=== PATIENT | female | born 1945 | race Caucasian/White ===

== ENCOUNTER 2018-12-25 17:17 | Emergency (ER) | payer MEDICARE, OTHER ==
[~2018-12-25 17:17] MED LIST: Sodium Chloride 0.9% 10 ML Syringe FLUSH PRN
[2018-12-25] MEDS ORDERED: Octreotide 100 MCG/ML SDV IVPUSH ONE (17:47)
[2018-12-25] MEDS ORDERED: Pantoprazole 40 MG Vial IVPUSH ONE (17:47)
[2018-12-25] MEDS ORDERED: cefTRIAXone 2 GM in Sodium Chloride 0.9% 100 ML IV ONE (17:53)
[2018-12-25] MEDS ORDERED: cefTRIAXone 1 GM Vial ONE (17:56)
[2018-12-25 17:58] LABS: ANION GAP 14.2; CHLORIDE,CL 110 mmol/L (101-111); SODIUM,NA 142 mmol/L (135-145)
[2018-12-25] MEDS ORDERED: Octreotide 500 MCG in Sodium Chloride 0.9% 250 ML IV SCH (18:00)
[2018-12-25] MEDS ORDERED: Famotidine 20 MG/2 ML SDV IVPUSH ONE (18:07)
--- NOTE | 2018-12-25 18:57 | EDM.PDOC ---
ED HPI GENERAL MEDICAL PROBLEM - General Chief Complaint: Gastrointestinal Problem Stated Complaint: AMBULANCE Time Seen by Provider: 12/25/18 17:25 Source of Information: Reports: Patient, EMS, EMS Notes Reviewed, Family, RN, RN Notes Reviewed History Limitations: Reports: Altered Mental Status - History of Present Illness INITIAL COMMENTS - FREE TEXT/NARRATIVE: Pt to the ER per [facility] with c/o vomiting blood since last night and bloody BM's today, and falling frequently. Upon arrival patient is very pale and vague with responses. Pt states she has had GI bleeds in the past, and has had gastric bypass in the past as well. Patient states she drinks alcohol and last had alcohol last evening. Patient states she feels very weak. Upon arrival to the ER pt HR in the 30's, BP 79 systolically, O2 saturation dropped to 77% on 3L/NC. Patient moved to room 1 and [facility] called for transfer to [facility] in [place]. Onset: Gradual Onset Date: 12/24/18 Abdomen Pain Score (Numeric/FACES): 6 - Related Data Allergies Allergy/AdvReac Type Severity Reaction Status Date / Time No Known Allergies Allergy Verified 09/23/13 15:29 Home Meds: Home Meds Amylase/Lipase/Protease [Peggy LEWIS 24,000 Units] 1 each PO TID 09/23/13 [History] Ascorbic Acid [Vitamin C] 500 mg PO 09/23/13 [History] Aspirin [Ecotrin] 81 mg PO 09/23/13 [History] Cholecalciferol (Vitamin D3) [Vitamin D3] 09/23/13 [History] Cyanocobalamin (Vitamin B-12) [Cyanocobalamin Injection] .MONTHLY 09/23/13 [ History] Fish Oil/[place]-3 Fatty Acids [Fish Oil] 1 gm PO 09/23/13 [History] Multivitamin with Minerals [Multiple Vitamin] 1 tab PO DAILY 09/23/13 [History] RABEprazole [Aciphex] 20 mg PO DAILY 09/23/13 [History] Zolpidem [Ambien] DAILY 09/23/13 [History] levoFLOXacin [Levaquin] 09/23/13 [History] metFORMIN HCl [Metformin HCl] 09/23/13 [History] Past Medical History Endocrine/Metabolic History: Reports: Diabetes, Type II Social & Family History - Tobacco Use Smoking Status *Q: Never Smoker - Alcohol Use Days Per Week of Alcohol Use: 5 Number of Drinks Per Day: 2 Total Drinks Per Week: 10 - Recreational Drug Use Recreational Drug Use: No ED ROS GENERAL - Review of Systems Review Of Systems: ROS reveals no pertinent complaints other than HPI. ED EXAM, GI/ABD - Physical Exam Exam: See Below Exam Limited By: Altered Mental Status General Appearance: Alert, WD/WN, No Apparent Distress Eyes: Bilateral: Normal Appearance, EOMI Ears: Normal External Exam, Hearing Grossly Normal Nose: Normal Inspection Throat/Mouth: Normal Inspection, Normal Voice, No Airway Compromise Head: Atraumatic, Normocephalic Neck: Normal Inspection, Supple, Non-Tender, Full Range of Motion Respiratory/Chest: No Respiratory Distress, Lungs Clear, Normal Breath Sounds, No Accessory Muscle Use, Chest Non-Tender Cardiovascular: Normal Peripheral Pulses, Regular Rate, Rhythm, No Edema, No Gallop, No JVD, No Murmur, No Rub, Bradycardia GI/Abdominal Exam: Normal Bowel Sounds, Soft, Non-Tender, No Organomegaly, No Distention, No Abnormal Bruit, No Mass, Pelvis Stable (Female) Exam: Deferred Rectal (Female) Exam: Bloody Stool, Heme + Stool Back Exam: Normal Inspection, Full Range of Motion, NT Extremities: Normal Inspection, Normal Range of Motion, Non-Tender, Normal Capillary Refill, No Pedal Edema Neurological: Alert, Inattentive, Slow to Respond Psychiatric: Flat Affect Skin Exam: Cool, Diaphoretic, Pallor Lymphatic: No Adenopathy Course - Vital Signs Last Recorded V/S: Last Vital Signs Temp 98.1 F 12/25/18 17:55 Pulse 71 12/25/18 17:55 Resp 18 12/25/18 17:55 BP 101/57 L 12/25/18 17:55 Pulse Ox 77 L 12/25/18 17:22 - Orders/Labs/Meds Labs: Laboratory Tests 12/25/18 12/25/18 12/25/18 Range/Units 17:28 17:28 17:28 WBC 10.9 H (5.0-10.0) 10^3/uL RBC 1.93 L (4.2-5.4) 10^6/uL Hgb 5.5 L* (12.0-16.0) g/dL Hct 17.8 L* (37.0-47.0) % MCV 92.2 (80-100) fL MCH 28.5 (27.0-34.0) pg MCHC 30.9 L (33.0-35.0) g/dL Plt Count 216 (150-450) 10^3/uL Neut % (Auto) 55.0 (42.2-75.2) % Lymph % (Auto) 39.7 (20.5-50.1) % [place] % (Auto) 4.5 (2-8) % Eos % (Auto) 0.6 L (1.0-3.0) % Baso % (Auto) 0.2 (0.0-1.0) % PT 11.6 (9.0-12.0) SEC INR 1.1 (0.9-1.2) Sodium 142 (135-145) mmol/L Potassium 4.2 (3.6-5.0) mmol/L Chloride 110 (101-111) mmol/L Carbon Dioxide 22.0 (21.0-31.0) mmol/L Anion Gap 14.2 BUN 40 H (7-18) mg/dL Creatinine 0.9 (0.6-1.3) mg/dL Est Cr Clr Drug Dosing 40.58 mL/min Estimated GFR (MDRD) > 60 BUN/Creatinine Ratio 44.44 Glucose 268 H (74-105) mg/dL Calcium 8.3 L (8.4-10.2) mg/dl Total Bilirubin 0.8 (0.2-1.0) mg/dL AST 25 (10-42) IU/L ALT 21 (10-60) IU/L Alkaline Phosphatase 63 (42-121) IU/L Troponin I < 0.02 (0.00-0.02) ng/ml Total Protein 4.3 L (6.7-8.2) g/dl Albumin 2.4 L (3.2-5.5) g/dl Globulin 1.9 Albumin/Globulin Ratio 1.26 Urine Color (YELLOW) Urine Appearance (CLEAR) Urine pH (5.0-9.0) Ur Specific [place] (1.005-1.030) Urine Protein (NEGATIVE) Urine Glucose (UA) (NEGATIVE) Urine Ketones (NEGATIVE) Urine Occult Blood (NEGATIVE) Urine Nitrite (NEGATIVE) Urine Bilirubin (NEGATIVE) Urine Urobilinogen (0.2-1.0) mg/dL Ur Leukocyte Esterase (NEGATIVE) Urine RBC /HPF Urine WBC (0-5/HPF) /HPF Ur Epithelial Cells (NOT SEEN) /HPF Amorphous Sediment (NOT SEEN) /HPF Urine Bacteria (0-FEW/HPF) /HPF Urine Mucus (NOT SEEN) /LPF Ethyl Alcohol mg/dL Blood Type Gel Antibody Screen Antibody Identification Crossmatch 12/25/18 12/25/18 12/25/18 Range/Units 17:28 17:28 17:36 WBC (5.0-10.0) 10^3/uL RBC (4.2-5.4) 10^6/uL Hgb (12.0-16.0) g/dL Hct (37.0-47.0) % MCV (80-100) fL MCH (27.0-34.0) pg MCHC (33.0-35.0) g/dL Plt Count (150-450) 10^3/uL Neut % (Auto) (42.2-75.2) % Lymph % (Auto) (20.5-50.1) % [place] % (Auto) (2-8) % Eos % (Auto) (1.0-3.0) % Baso % (Auto) (0.0-1.0) % PT (9.0-12.0) SEC INR (0.9-1.2) Sodium (135-145) mmol/L Potassium (3.6-5.0) mmol/L Chloride (101-111) mmol/L Carbon Dioxide (21.0-31.0) mmol/L Anion Gap BUN (7-18) mg/dL Creatinine (0.6-1.3) mg/dL Est Cr Clr Drug Dosing mL/min Estimated GFR (MDRD) BUN/Creatinine Ratio Glucose (74-105) mg/dL Calcium (8.4-10.2) mg/dl Total Bilirubin (0.2-1.0) mg/dL AST (10-42) IU/L ALT (10-60) IU/L Alkaline Phosphatase (42-121) IU/L Troponin I (0.00-0.02) ng/ml Total Protein (6.7-8.2) g/dl Albumin (3.2-5.5) g/dl Globulin Albumin/Globulin Ratio Urine Color Yellow (YELLOW) Urine Appearance Clear (CLEAR) Urine pH 6.0 (5.0-9.0) Ur Specific [place] >= 1.030 (1.005-1.030) Urine Protein Trace H (NEGATIVE) Urine Glucose (UA) Negative (NEGATIVE) Urine Ketones Negative (NEGATIVE) Urine Occult Blood Trace-intact H (NEGATIVE) Urine Nitrite Negative (NEGATIVE) Urine Bilirubin Negative (NEGATIVE) Urine Urobilinogen 0.2 (0.2-1.0) mg/dL Ur Leukocyte Esterase Trace H (NEGATIVE) Urine RBC 5-10 H /HPF Urine WBC 20-30 H (0-5/HPF) /HPF Ur Epithelial Cells Few (NOT SEEN) /HPF Amorphous Sediment Moderate H (NOT SEEN) /HPF Urine Bacteria Many H (0-FEW/HPF) /HPF Urine Mucus Moderate H (NOT SEEN) /LPF Ethyl Alcohol < 5 mg/dL Blood Type O NEGATIVE Gel Antibody Screen Positive Antibody Identification Anti-E Crossmatch See Detail Meds: Medications Discontinued Medications Generic Name Dose Route Start Last Admin Trade Name Nohemy PRN Reason Stop Dose Admin Ceftriaxone Sodium Confirm 12/25/18 17:56 12/25/18 18:06 Rocephin Administered 12/25/18 17:57 Not Given Dose 2 gm .ROUTE .STK-MED ONE Famotidine 20 mg 12/25/18 18:07 12/25/18 18:14 Pepcid IVPUSH 12/25/18 18:08 20 mg ONETIME ONE Administration Octreotide Acetate 500 mcg/ 255 mls @ 12.5 mls/hr 12/25/18 18:00 12/25/18 17: 54 Sodium Chloride IV 12.5 mls/hr ASDIRECTED SAMIR Administration Ceftriaxone Sodium 2 gm/ 100 mls @ 200 mls/hr 12/25/18 17:53 12/25/18 18:06 Sodium Chloride IV 12/25/18 18:22 200 mls/hr ONETIME ONE Administration Octreotide Acetate 50 mcg 12/25/18 17:47 12/25/18 17:52 Sandostatin IVPUSH 12/25/18 17:48 50 mcg ONETIME ONE Administration Pantoprazole Sodium 80 mg 12/25/18 17:47 12/25/18 17:51 Protonix Iv IVPUSH 12/25/18 17:48 80 mg .BOLUS ONE Administration Sodium Chloride 10 ml 12/25/18 17:16 12/25/18 17:54 Saline Flush FLUSH 10 ml ASDIRECTED PRN Administration Keep Vein Open Departure - Departure Time of Disposition: 18:28 Disposition: DC/Tfer to Acute Hospital 02 Condition: Poor, Serious Clinical Impression: GI bleed Qualifiers: GI bleed type/associated pathology: unspecified gastrointestinal hemorrhage type Qualified Code(s): K92.2 - Gastrointestinal hemorrhage, unspecified - Discharge Information *PRESCRIPTION DRUG MONITORING PROGRAM REVIEWED*: No *COPY OF PRESCRIPTION DRUG MONITORING REPORT IN PATIENT REIC: No Forms: ED Department Discharge, Interfacility Transfer SHAN
== END 2018-12-25 18:28 ==
LOC: DL.ED 17:17
DX: K92.2 Gastrointestinal hemorrhage, unspecified (principal); E11.9 Type 2 diabetes mellitus without complications; Z79.899 Other long term (current) drug therapy; Z79.84 Long term (current) use of oral hypoglycemic drugs; Z79.82 Long term (current) use of aspirin
CPT/HCPCS: 36415; 36430; 80053; 81001; 82271; 82272; 84484; 85025; 85610; 86850; 86900; 86901; 86902; 86920; 86922; 87086; 87088; 87186; 93005; 96365; 96375; 96376; 99285; C9113; G0480; J0696; J2354; J3490; J7050; P9016

== ENCOUNTER 2019-03-14 10:13 | Emergency (ER) | payer MEDICARE, OTHER ==
[2019-03-14] MEDS ORDERED: Sodium Chloride 0.9% 10 ML Syringe FLUSH PRN (10:18)
[2019-03-14] MEDS ORDERED: Pantoprazole 40 MG Vial IVPUSH ONE (10:37)
[2019-03-14] MEDS ORDERED: Ondansetron 4 MG/2 ML SDV IV ONE (10:37)
--- NOTE | 2019-03-14 10:48 | EDM.PDOC ---
ED HPI GENERAL MEDICAL PROBLEM - General Stated Complaint: THROWING UP BLOOD Time Seen by Provider: 03/14/19 10:45 Source of Information: Reports: Patient History Limitations: Reports: No Limitations - History of Present Illness INITIAL COMMENTS - FREE TEXT/NARRATIVE: This 73 yo female patient reports to the ED due to vomiting blood this morning ( 6 times). The patient reports she has had a previous episode of GI bleeding ( patient reports a bleeding polyp) for which she was transferred to [facility] while getting blood. The patient reports she has had a stiff neck lately and has been in physical therapy. The patient reports she took Aleve last night for a headache. This morning she woke up with increased abdominal pain and vomiting black substances. The patient reports her blood is O negative with antibodies. 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 (Aleve last night) Lower Abdomen Pain Score (Numeric/FACES): 3 - Related Data Allergies Allergy/AdvReac Type Severity Reaction Status Date / Time No Known Allergies Allergy Verified 03/14/19 10:30 Home Meds: Home Meds Amylase/Lipase/Protease [Peggy DR 24,000 Units] 1 each PO ASDIRECTED 09/23/13 [ History] Cholecalciferol (Vitamin D3) [Vitamin D3] 1,000 units PO DAILY 09/23/13 [History ] Cyanocobalamin (Vitamin B-12) [Cyanocobalamin Injection] 1 ml SQ .MONTHLY [History] Multivitamin with Minerals [Multiple Vitamin] 1 tab PO DAILY 09/23/13 [History] Zolpidem [Ambien] 5 mg PO DAILY 09/23/13 [History] metFORMIN HCl [Metformin HCl] 500 mg PO BID 09/23/13 [History] Acetaminophen/HYDROcodone [[place] 325-5 MG] 1 tab PO ASDIRECTED PRN 03/14/19 [ History] Metoprolol Succinate 50 mg PO DAILY 03/14/19 [History] Omeprazole 20 mg PO DAILY 03/14/19 [History] Past Medical History Musculoskeletal History: Reports: Osteoarthritis Endocrine/Metabolic History: Reports: Diabetes, Type II ED ROS GENERAL - Review of Systems Review Of Systems: Comprehensive ROS is negative, except as noted in HPI. ED EXAM, GI/ABD - Physical Exam Exam: See Below Exam Limited By: No Limitations General Appearance: Alert, WD/WN, Moderate Distress Eyes: Bilateral: Normal Appearance, EOMI Ears: Normal External Exam, Normal Canal, Hearing Grossly Normal, Normal TMs Nose: Normal Inspection, Normal Mucosa, No Blood Throat/Mouth: Normal Inspection, Normal Lips, Normal Teeth, Normal Gums, Normal Oropharynx, Normal Voice, No Airway Compromise Head: Atraumatic, Normocephalic Neck: Normal Inspection, Supple, Non-Tender, Full Range of Motion Respiratory/Chest: Other (dark flecks in throat and on posterior tongue from vomting. ) Cardiovascular: Normal Peripheral Pulses, Regular Rate, Rhythm, No Edema, No Gallop, No JVD, No Murmur, No Rub GI/Abdominal Exam: No Organomegaly, No Distention, No Abnormal Bruit, No Mass, Pelvis Stable, Tender (diffuse) (Female) Exam: Deferred Rectal (Female) Exam: Deferred Back Exam: Normal Inspection, Full Range of Motion, NT Extremities: Normal Inspection, Normal Range of Motion, Non-Tender, Normal Capillary Refill, No Pedal Edema Neurological: Alert Psychiatric: Normal Affect, Normal Mood Skin Exam: Warm, Dry, Intact, Normal Color, No Rash Lymphatic: No Adenopathy Course - Vital Signs Last Recorded V/S: Last Vital Signs Temp 35.6 C 03/14/19 10:22 Pulse 68 03/14/19 10:22 Resp 16 03/14/19 10:22 BP 118/57 L 03/14/19 10:22 Pulse Ox 97 03/14/19 10:22 - Orders/Labs/Meds Orders: Active Orders 24 hr Category Date Time Status INFLUENZA A+B AG SCREEN [RM] Stat Lab 03/14/19 10:35 Received RED BLOOD CELLS LP [BBK] Stat Lab 03/14/19 10:24 Received TYPE AND SCREEN [BBK] Stat Lab 03/14/19 10:24 Received Sodium Chloride 0.9% [Normal Saline] 1,000 ml Med 03/14/19 11:03 Active IV .BOLUS Sodium Chloride 0.9% [Saline Flush] Med 03/14/19 10:18 Active 10 ml FLUSH ASDIRECTED PRN Saline Lock Insert [OM.PC] Routine Oth 03/14/19 10:18 Ordered Medication Orders Sodium Chloride (Normal Saline) 1,000 mls @ 999 mls/hr IV .BOLUS ONE Stop: 03/14/19 12:03 Last Admin: 03/14/19 11:04 Dose: 999 mls/hr Sodium Chloride (Saline Flush) 10 ml FLUSH ASDIRECTED PRN PRN Reason: Keep Vein Open Last Admin: 03/14/19 10:50 Dose: 10 ml Labs: Laboratory Tests 03/14/19 03/14/19 03/14/19 Range/Units 10:24 10:24 10:24 WBC 9.2 (5.0-10.0) 10^3/uL RBC 3.00 L (4.2-5.4) 10^6/uL Hgb 8.6 L D (12.0-16.0) g/dL Hct 26.9 L (37.0-47.0) % MCV 89.7 (80-100) fL MCH 28.7 (27.0-34.0) pg MCHC 32.0 L (33.0-35.0) g/dL Plt Count 210 (150-450) 10^3/uL Neut % (Auto) 66.3 (42.2-75.2) % Lymph % (Auto) 26.4 (20.5-50.1) % [place] % (Auto) 5.0 (2-8) % Eos % (Auto) 2.1 (1.0-3.0) % Baso % (Auto) 0.2 (0.0-1.0) % PT 10.9 (9.0-12.0) SEC INR 1.1 (0.9-1.2) Sodium 140 (135-145) mmol/L Potassium 5.0 (3.6-5.0) mmol/L Chloride 107 (101-111) mmol/L Carbon Dioxide 27.0 (21.0-31.0) mmol/L Anion Gap 11.0 BUN 30 H (7-18) mg/dL Creatinine 0.9 (0.6-1.3) mg/dL Est Cr Clr Drug Dosing 44.69 mL/min Estimated GFR (MDRD) > 60 BUN/Creatinine Ratio 33.33 Glucose 205 H (74-105) mg/dL Calcium 8.9 (8.4-10.2) mg/dl Total Bilirubin 1.2 H (0.2-1.0) mg/dL AST 70 H (10-42) IU/L ALT 48 (10-60) IU/L Alkaline Phosphatase 99 (42-121) IU/L Total Protein 5.6 L (6.7-8.2) g/dl Albumin 3.0 L (3.2-5.5) g/dl Globulin 2.6 Albumin/Globulin Ratio 1.15 Meds: Medications Generic Name Dose Route Start Last Admin Trade Name Freq PRN Reason Stop Dose Admin Sodium Chloride 1,000 mls @ 999 mls/hr 03/14/19 11:03 03/14/19 11:04 Normal Saline IV 03/14/19 12:03 999 mls/hr .BOLUS ONE Administration Sodium Chloride 10 ml 03/14/19 10:18 03/14/19 10:50 Saline Flush FLUSH 10 ml ASDIRECTED PRN Administration Keep Vein Open Discontinued Medications Generic Name Dose Route Start Last Admin Trade Name Freq PRN Reason Stop Dose Admin Ondansetron HCl 4 mg 03/14/19 10:37 03/14/19 10:49 Zofran IV 03/14/19 10:38 4 mg ONETIME ONE Administration Pantoprazole Sodium 80 mg 03/14/19 10:37 03/14/19 10:52 Protonix Iv IVPUSH 03/14/19 10:38 80 mg .BOLUS ONE Administration Departure - Departure Time of Disposition: 11:15 Disposition: DC/Tfer to Acute Hospital 02 Condition: Serious Clinical Impression: Upper GI bleed - Discharge Information *PRESCRIPTION DRUG MONITORING PROGRAM REVIEWED*: Not Applicable *COPY OF PRESCRIPTION DRUG MONITORING REPORT IN PATIENT ERIC: Not Applicable Forms: Interfacility Transfer EMTALA Care Plan Goals: Discussed the patient examination, history, lab and treatments with Dr. Salgado. Dr. Salgado accepted the patient for continued evaluation and management as an inpatient at [facility] in [place]. The patient will be transported by [facility]. Sepsis Event Note - Evaluation Sepsis Screening Result: No Definite Risk - Focused Exam Vital Signs: Vital Signs Temp Pulse Resp BP Pulse Ox 03/14/19 10:22 35.6 C 68 16 118/57 L 97 Date Exam was Performed: 03/14/19 Time Exam was Performed: 11:15 - My Orders Last 24 Hours: My Active Orders 03/14/19 10:18 Sodium Chloride 0.9% [Saline Flush] 10 ml FLUSH ASDIRECTED PRN Saline Lock Insert [OM.PC] Routine 03/14/19 10:24 RED BLOOD CELLS LP [BBK] Stat TYPE AND SCREEN [BBK] Stat 03/14/19 10:35 INFLUENZA A+B AG SCREEN [RM] Stat 03/14/19 11:03 Sodium Chloride 0.9% [Normal Saline] 1,000 ml IV .BOLUS - Assessment/Plan Last 24 Hours: My Active Orders 03/14/19 10:18 Sodium Chloride 0.9% [Saline Flush] 10 ml FLUSH ASDIRECTED PRN Saline Lock Insert [OM.PC] Routine 03/14/19 10:24 RED BLOOD CELLS LP [BBK] Stat TYPE AND SCREEN [BBK] Stat 03/14/19 10:35 INFLUENZA A+B AG SCREEN [RM] Stat 03/14/19 11:03 Sodium Chloride 0.9% [Normal Saline] 1,000 ml IV .BOLUS
[2019-03-14 10:51] LABS: CHLORIDE,CL 107 mmol/L (101-111); SODIUM,NA 140 mmol/L (135-145)
[2019-03-14] MEDS ORDERED: Sodium Chloride 0.9% 1,000 ML IV ONE (11:03)
== END 2019-03-14 11:47 ==
LOC: DL.ED 10:13
DX: K92.2 Gastrointestinal hemorrhage, unspecified (principal); E11.9 Type 2 diabetes mellitus without complications; M19.90 Unspecified osteoarthritis, unspecified site; Z79.84 Long term (current) use of oral hypoglycemic drugs; Z79.899 Other long term (current) drug therapy
CPT/HCPCS: 36415; 80053; 85025; 85610; 86850; 86870; 86900; 86901; 87804; 96361; 96374; 96375; 99285; C9113; J2405; J7030

== ENCOUNTER 2019-08-28 10:51 | Emergency (ER) | payer MEDICARE, OTHER ==
--- NOTE | 2019-08-28 11:29 | EDM.PDOC ---
ED HPI GENERAL MEDICAL PROBLEM - General Chief Complaint: Gastrointestinal Problem Stated Complaint: POSSIBLE GI BLEED Time Seen by Provider: 08/28/19 11:15 Source of Information: Reports: Patient History Limitations: Reports: No Limitations - History of Present Illness INITIAL COMMENTS - FREE TEXT/NARRATIVE: This 73 yo female patient was sent to the ED by her PCP due to dizziness, dark stools and not feeling well. The patient reports she started to notice dark stools on Tuesday. The patient reports she started to feel lightheaded on Tuesday which has continued to get worse. The patient reports she did have a CT with barium last week. The patient reports she has a history of GI bleeds in the past and has diverticuli from previous examinations. Onset Date: 08/24/19 Duration: Constant, Getting Worse Location: Reports: Generalized Quality: Reports: Other Severity: Moderate Improves with: Reports: None Worsens with: Reports: None Context: Reports: Other Associated Symptoms: Reports: Weakness, Other (dizziness) - Related Data Allergies Allergy/AdvReac Type Severity Reaction Status Date / Time levofloxacin [From Levaquin] Allergy Rash Verified 08/16/19 13:35 Home Meds: Home Meds Amylase/Lipase/Protease [Peggy LEWIS 24,000 Units] 1 each PO ASDIRECTED 09/23/13 [ History] Cholecalciferol (Vitamin D3) [Vitamin D3] 1,000 units PO DAILY 09/23/13 [History ] Cyanocobalamin (Vitamin B-12) [Cyanocobalamin Injection] 1 ml SQ .MONTHLY [History] Multivitamin with Minerals [Multiple Vitamin] 1 tab PO DAILY 09/23/13 [History] Zolpidem [Ambien] 5 mg PO DAILY 09/23/13 [History] metFORMIN HCl [Metformin HCl] 500 mg PO BID 09/23/13 [History] Acetaminophen/HYDROcodone [[place] 325-5 MG] 1 tab PO ASDIRECTED PRN 03/14/19 [ History] Metoprolol Succinate 50 mg PO DAILY 03/14/19 [History] Omeprazole 20 mg PO DAILY 03/14/19 [History] Past Medical History HEENT History: Reports: Cataract Cardiovascular History: Reports: Hypertension Respiratory History: Reports: None Gastrointestinal History: Reports: Cirrhosis, GI Bleed Other Gastrointestinal History: gi bleed in sept Genitourinary History: Reports: None 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 Musculoskeletal History: Reports: Osteoarthritis Neurological History: Reports: None Psychiatric History: Reports: None Endocrine/Metabolic History: Reports: Diabetes, Type II Hematologic History: Reports: B12 Deficiency, Blood Transfusion(s) Immunologic History: Reports: None Oncologic (Cancer) History: Reports: None Dermatologic History: Reports: None - Infectious Disease History Infectious Disease History: Reports: Chicken Pox, Measles, Mumps - Past Surgical History Head Surgeries/Procedures: Reports: None HEENT Surgical History: Reports: Cataract Surgery GI Surgical History: Reports: Appendectomy, Cholecystectomy Other GI Surgeries/Procedures: gastric bypass Other Musculoskeletal Surgeries/Procedures:: knee cap Social & Family History - Caffeine Use Caffeine Use: Reports: Coffee ED ROS GENERAL - Review of Systems Review Of Systems: Comprehensive ROS is negative, except as noted in HPI. ED EXAM, GI/ABD - Physical Exam Exam: See Below Exam Limited By: No Limitations General Appearance: Alert, WD/WN, Mild Distress Eyes: Bilateral: Normal Appearance, EOMI Ears: Normal External Exam, Normal Canal, Hearing Grossly Normal, Normal TMs Nose: Normal Inspection, Normal Mucosa, No Blood Throat/Mouth: Normal Inspection, Normal Lips, Normal Teeth, Normal Gums, Normal Oropharynx, Normal Voice, No Airway Compromise Head: Atraumatic, Normocephalic Neck: Normal Inspection, Supple, Non-Tender, Full Range of Motion Respiratory/Chest: No Respiratory Distress, Lungs Clear, Normal Breath Sounds, No Accessory Muscle Use, Chest Non-Tender Cardiovascular: Normal Peripheral Pulses, Regular Rate, Rhythm, No Edema, No Gallop, No JVD, No Murmur, No Rub GI/Abdominal Exam: Normal Bowel Sounds, Soft, No Organomegaly, No Distention, No Abnormal Bruit, No Mass, Pelvis Stable, Tender (diffuse mild tenderness to palpation) (Female) Exam: Deferred Rectal (Female) Exam: Deferred Back Exam: Normal Inspection, Full Range of Motion, NT Extremities: Normal Inspection, Normal Range of Motion, Non-Tender, Normal Capillary Refill, No Pedal Edema Neurological: Alert, Oriented, CN II-XII Intact, Normal Cognition, Normal Gait, Normal Reflexes, No Motor/Sensory Deficits Psychiatric: Normal Affect, Normal Mood Skin Exam: Warm, Dry, Intact, Normal Color, No Rash Lymphatic: No Adenopathy Course - Vital Signs Last Recorded V/S: Last Vital Signs Temp 36.4 C 08/28/19 11:20 Pulse 68 08/28/19 11:20 Resp 14 08/28/19 11:20 BP 163/81 H 08/28/19 11:38 Pulse Ox 97 08/28/19 11:20 - Orders/Labs/Meds Orders: Active Orders 24 hr Category Date Time Status EKG Documentation Completion [RC] STAT Care 08/28/19 11:06 Ordered Labs: Laboratory Tests 08/28/19 08/28/19 08/28/19 Range/Units 11:13 11:13 11:27 WBC 5.8 (5.0-10.0) 10^3/uL RBC 4.39 (4.2-5.4) 10^6/uL Hgb 12.9 D (12.0-16.0) g/dL Hct 39.0 (37.0-47.0) % MCV 88.8 (80-100) fL MCH 29.4 (27.0-34.0) pg MCHC 33.1 (33.0-35.0) g/dL Plt Count 147 L (150-450) 10^3/uL Neut % (Auto) 65.5 (42.2-75.2) % Lymph % (Auto) 25.0 (20.5-50.1) % [place] % (Auto) 6.4 (2-8) % Eos % (Auto) 2.9 (1.0-3.0) % Baso % (Auto) 0.2 (0.0-1.0) % Add Manual Diff Yes Neutrophils % (Manual) 59 (42-75) % Band Neutrophils % 4 % Lymphocytes % (Manual) 28 (20-50) % Monocytes % (Manual) 4 (2-8) % Eosinophils % (Manual) 5 H (1-3) % Sodium 141 (136-145) mmol/L Potassium 4.3 (3.5-5.1) mmol/L Chloride 103 (98-107) mmol/L Carbon Dioxide 34 H (21-32) mmol/L Anion Gap 8.3 (7-13) mEq/L BUN 13 (7-18) mg/dL Creatinine 1.05 H (0.55-1.02) mg/dL Est Cr Clr Drug Dosing 38.30 mL/min Estimated GFR (MDRD) 52 BUN/Creatinine Ratio 12.4 (No establ ref range) Glucose 151 H (74-99) mg/dL Calcium 9.5 (8.5-10.1) mg/dL Total Bilirubin 0.5 (0.2-1.0) mg/dL AST 46 H (15-37) U/L ALT 48 (14-59) U/L Alkaline Phosphatase 141 H (46-116) U/L Troponin I < 0.017 (0.000-0.056) ng/mL Total Protein 6.7 (6.4-8.2) g/dL Albumin 3.3 L (3.4-5.0) g/dL Globulin 3.4 Albumin/Globulin Ratio 0.97 Urine Color Yellow (YELLOW) Urine Appearance Clear (CLEAR) Urine pH 7.5 (5.0-9.0) Ur Specific [place] 1.020 (1.005-1.030) Urine Protein Negative (NEGATIVE) Urine Glucose (UA) Negative (NEGATIVE) Urine Ketones Negative (NEGATIVE) Urine Occult Blood Trace-intact H (NEGATIVE) Urine Nitrite Negative (NEGATIVE) Urine Bilirubin Negative (NEGATIVE) Urine Urobilinogen 0.2 (0.2-1.0) mg/dL Ur Leukocyte Esterase Negative (NEGATIVE) Urine RBC 0-5 /HPF Urine WBC Not seen (0-5/HPF) /HPF Ur Epithelial Cells Few (NOT SEEN) /HPF Urine Bacteria Rare (0-FEW/HPF) /HPF Departure - Departure Time of Disposition: 12:31 Disposition: Home, Self-Care 01 Condition: Fair Clinical Impression: GI bleed Qualifiers: GI bleed type/associated pathology: unspecified gastrointestinal hemorrhage type Qualified Code(s): K92.2 - Gastrointestinal hemorrhage, unspecified - Discharge Information *PRESCRIPTION DRUG MONITORING PROGRAM REVIEWED*: Not Applicable *COPY OF PRESCRIPTION DRUG MONITORING REPORT IN PATIENT ERIC: Not Applicable Instructions: Gastrointestinal Bleeding, Dehydration, Adult, [id number] Forms: ED Department Discharge Care Plan Goals: The patient was advised of the examination and lab results during the visit. The patient was advised that she does need to see a GI specialist for continued evaluation and further treatment. The patient advised that she would prefer to contact Dr. Carey to set up an appointment at this time. The patient was encouraged to return to the emergency department if there was any worsening of her condition. Sepsis Event Note - Focused Exam Vital Signs: Vital Signs Temp Pulse Resp BP Pulse Ox 08/28/19 11:38 163/81 H 08/28/19 11:20 36.4 C 68 14 179/68 H 97 Date Exam was Performed: 08/28/19 Time Exam was Performed: 12:31 - My Orders Last 24 Hours: My Active Orders 08/28/19 11:06 EKG Documentation Completion [RC] STAT - Assessment/Plan Last 24 Hours: My Active Orders 08/28/19 11:06 EKG Documentation Completion [RC] STAT
[2019-08-28 11:40] LABS: ANION GAP 8.3 mEq/L (7-13); CHLORIDE,CL 103 mmol/L (98-107); SODIUM,NA 141 mmol/L (136-145)
== END 2019-08-28 12:37 | disposition home or self-care (01) ==
LOC: DL.ED 10:51
DX: K92.2 Gastrointestinal hemorrhage, unspecified (principal); I10 Essential (primary) hypertension; E11.9 Type 2 diabetes mellitus without complications; Z90.49 Acquired absence of other specified parts of digestive tract; Z98.84 Bariatric surgery status; Z88.8 Allergy status to other drugs, medicaments and biological substances; Z79.899 Other long term (current) drug therapy; Z79.84 Long term (current) use of oral hypoglycemic drugs
CPT/HCPCS: 36415; 80053; 81001; 82272; 84484; 85025; 93005; 99284-25

== ENCOUNTER 2020-11-14 09:20 | Emergency (ER) | payer MEDICARE, OTHER ==
--- NOTE | 2020-11-14 09:35 | EDM.PDOC ---
ED HPI GENERAL MEDICAL PROBLEM - General Stated Complaint: LARGE AMOUNT OF BLOOD N STOOL Time Seen by Provider: 11/14/20 09:31 Source of Information: Reports: Patient, RN, RN Notes Reviewed History Limitations: Reports: No Limitations - History of Present Illness INITIAL COMMENTS - FREE TEXT/NARRATIVE: Sherri is a 75 y/o female with history of GI bleed who presents to the ED via personal vehicle with for complaints of melena. The patient reports her symptoms began yesterday afternoon and have progressively worsened in that time as she has experienced several bouts of dark tarry stool. Additionally, she reports weakness, chest pain, and nausea with one bout of emesis. She denies fever, shaking chills, syncope, palpitations, abdominal pain, hematemesis, hematochezia, dysuria, or hematuria. She has taken no mediations for her symptoms. She has undergone and colonoscopy and EGD with no interventions performed. She follows with [facility], for gastroenterology. - Related Data Allergies Allergy/AdvReac Type Severity Reaction Status Date / Time levofloxacin [From Levaquin] Allergy Rash Verified 11/14/20 09:43 Home Meds: Home Meds Amylase/Lipase/Protease [Peggy LEWIS 24,000 Units] 1 each PO ASDIRECTED 09/23/13 [History] Cholecalciferol (Vitamin D3) [Vitamin D3] 1,000 units PO DAILY 09/23/13 [History] Cyanocobalamin (Vitamin B-12) [Cyanocobalamin Injection] 1 ml SQ .MONTHLY 09/23/13 [History] Multivitamin with Minerals [Multiple Vitamin] 1 tab PO DAILY 09/23/13 [History] Zolpidem [Ambien] 5 mg PO DAILY 09/23/13 [History] metFORMIN HCl [Metformin HCl] 500 mg PO BID 09/23/13 [History] Acetaminophen/HYDROcodone [[place] 325-5 MG] 1 tab PO ASDIRECTED PRN 03/14/19 [History] Metoprolol Succinate 50 mg PO DAILY 03/14/19 [History] Omeprazole 20 mg PO DAILY 03/14/19 [History] Past Medical History HEENT History: Reports: Cataract Cardiovascular History: Reports: Hypertension Respiratory History: Reports: None Gastrointestinal History: Reports: Cirrhosis, GI Bleed Other Gastrointestinal History: gi bleed in sept Genitourinary History: Reports: None 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 Musculoskeletal History: Reports: Osteoarthritis Neurological History: Reports: None Psychiatric History: Reports: None Endocrine/Metabolic History: Reports: Diabetes, Type II Hematologic History: Reports: B12 Deficiency, Blood Transfusion(s) Immunologic History: Reports: None Oncologic (Cancer) History: Reports: None Dermatologic History: Reports: None - Infectious Disease History Infectious Disease History: Reports: Chicken Pox, Measles, Mumps - Past Surgical History Head Surgeries/Procedures: Reports: None HEENT Surgical History: Reports: Cataract Surgery GI Surgical History: Reports: Appendectomy, Cholecystectomy Other GI Surgeries/Procedures: gastric bypass Other Musculoskeletal Surgeries/Procedures:: knee cap Social & Family History - Caffeine Use Caffeine Use: Reports: Coffee ED ROS GENERAL - Review of Systems Review Of Systems: Comprehensive ROS is negative, except as noted in HPI. ED EXAM, GI/ABD - Physical Exam Exam: See Below Exam Limited By: No Limitations General Appearance: Alert, No Apparent Distress, Thin Eyes: Bilateral: Normal Appearance, EOMI Ears: Normal External Exam, Normal Canal, Hearing Grossly Normal, Normal TMs Nose: Normal Inspection, Normal Mucosa, No Blood Throat/Mouth: Normal Inspection, Normal Oropharynx, Normal Voice, No Airway Compromise Head: Atraumatic, Normocephalic Neck: Normal Inspection, Supple, Non-Tender, Full Range of Motion Respiratory/Chest: No Respiratory Distress, Lungs Clear, Normal Breath Sounds, No Accessory Muscle Use, Chest Non-Tender Cardiovascular: Normal Peripheral Pulses, Regular Rate, Rhythm, No Edema, No Gallop, No JVD, No Murmur, No Rub Course - Vital Signs Last Recorded V/S: Last Vital Signs Temp 97.3 F 11/14/20 09:39 Pulse 79 11/14/20 09:39 Resp 14 11/14/20 09:39 BP 111/54 L 11/14/20 09:39 Pulse Ox 100 11/14/20 09:39 - Orders/Labs/Meds Orders: Active Orders 24 hr Category Date Time Status DRUG SCREEN URINE BIORAD [URCHEM] Urgent Lab 11/14/20 09:30 Ordered REFLEX LACTIC ACID YES OR NO [CHEM] Routine Lab 11/14/20 10:14 Received UA RFX MELANIE AND CULT IF INDIC [URIN] Stat Lab 11/14/20 09:31 Ordered Lactated Ringers [Ringers, Lactated] 1,000 ml Med 11/14/20 10:32 Ordered IV .BOLUS Pantoprazole [ProTONIX IV] 40 mg Med 11/14/20 10:00 Active Sodium Chloride 0.9% [Normal Saline] 100 ml IV .CONTINUOS Medication Orders Pantoprazole Sodium 40 mg/ (Sodium Chloride) 100 mls @ 20 mls/hr IV .CONTINUOS SAMIR Last Admin: 11/14/20 10:03 Dose: 20 mls/hr Documented by: JOHN Lactated Ringer's (Ringers, Lactated) 1,000 mls @ 225 mls/hr IV .BOLUS ONE Stop: 11/14/20 14:58 Last Admin: 11/14/20 11:04 Dose: 225 mls/hr Documented by: JOHN Labs: Laboratory Tests 11/14/20 11/14/20 11/14/20 Range/Units 09:41 09:41 09:41 WBC 11.1 H (5.0-10.0) 10^3/uL RBC 3.85 L (4.2-5.4) 10^6/uL Hgb 11.6 L (12.0-16.0) g/dL Hct 36.2 L (37.0-47.0) % MCV 94.0 D (80-100) fL MCH 30.1 (27.0-34.0) pg MCHC 32.0 L (33.0-35.0) g/dL Plt Count 190 (150-450) 10^3/uL Neut % (Auto) 61.5 (42.2-75.2) % Lymph % (Auto) 28.2 (20.5-50.1) % [place] % (Auto) 6.7 (2-8) % Eos % (Auto) 3.3 H (1.0-3.0) % Baso % (Auto) 0.3 (0.0-1.0) % Add Manual Diff Yes Neutrophils % (Manual) 55 (42-75) % Band Neutrophils % 6 % Lymphocytes % (Manual) 30 (20-50) % Monocytes % (Manual) 6 (2-8) % Eosinophils % (Manual) 3 (1-3) % Sodium 145 (136-145) mmol/L Potassium 4.9 (3.5-5.1) mmol/L Chloride 105 (98-107) mmol/L Carbon Dioxide 34 H (21-32) mmol/L Anion Gap 10.9 (7-13) mEq/L BUN 41 H D (7-18) mg/dL Creatinine 1.13 H (0.55-1.02) mg/dL Est Cr Clr Drug Dosing 34.54 mL/min Estimated GFR (MDRD) 47 BUN/Creatinine Ratio 36.3 (No establ ref range) Glucose 259 H (70-99) mg/dL Lactic Acid (0.4-2.0) mmol/L Calcium 10.2 H (8.5-10.1) mg/dL Magnesium 1.7 L (1.8-2.4) mg/dL Total Bilirubin 1.2 H (0.2-1.0) mg/dL AST 32 (15-37) U/L ALT 61 H (14-59) U/L Alkaline Phosphatase 91 (46-116) U/L Ammonia < 10 L (11-32) umol/L Troponin I High Sens 7 (<=51) pg/mL C-Reactive Protein < 0.2 (0.0-0.9) mg/dL Total Protein 6.3 L (6.4-8.2) g/dL Albumin 3.2 L (3.4-5.0) g/dL Globulin 3.1 Albumin/Globulin Ratio 1.03 Ethyl Alcohol < 3 (0) mg/dL 11/14/ Range/Units 09:41 WBC (5.0-10.0) 10^3/uL RBC (4.2-5.4) 10^6/uL Hgb (12.0-16.0) g/dL Hct (37.0-47.0) % MCV (80-100) fL MCH (27.0-34.0) pg MCHC (33.0-35.0) g/dL Plt Count (150-450) 10^3/uL Neut % (Auto) (42.2-75.2) % Lymph % (Auto) (20.5-50.1) % [place] % (Auto) (2-8) % Eos % (Auto) (1.0-3.0) % Baso % (Auto) (0.0-1.0) % Add Manual Diff Neutrophils % (Manual) (42-75) % Band Neutrophils % % Lymphocytes % (Manual) (20-50) % Monocytes % (Manual) (2-8) % Eosinophils % (Manual) (1-3) % Sodium (136-145) mmol/L Potassium (3.5-5.1) mmol/L Chloride (98-107) mmol/L Carbon Dioxide (21-32) mmol/L Anion Gap (7-13) mEq/L BUN (7-18) mg/dL Creatinine (0.55-1.02) mg/dL Est Cr Clr Drug Dosing mL/min Estimated GFR (MDRD) BUN/Creatinine Ratio (No establ ref range) Glucose (70-99) mg/dL Lactic Acid 2.3 H* (0.4-2.0) mmol/L Calcium (8.5-10.1) mg/dL Magnesium (1.8-2.4) mg/dL Total Bilirubin (0.2-1.0) mg/dL AST (15-37) U/L ALT (14-59) U/L Alkaline Phosphatase (46-116) U/L Ammonia (11-32) umol/L Troponin I High Sens (<=51) pg/mL C-Reactive Protein (0.0-0.9) mg/dL Total Protein (6.4-8.2) g/dL Albumin (3.4-5.0) g/dL Globulin Albumin/Globulin Ratio Ethyl Alcohol (0) mg/dL Meds: Medications Generic Name Dose Route Start Last Admin Trade Name Freq PRN Reason Stop Dose Admin Pantoprazole Sodium 40 mg/ 100 mls @ 20 mls/hr 11/14/20 10:00 11/14/20 10:03 Sodium Chloride IV 20 mls/hr .CONTINUOS SAMIR Administration Lactated Ringer's 1,000 mls @ 225 mls/hr 11/14/20 10:32 11/14/20 11:04 Ringers, Lactated IV 11/14/20 14:58 225 mls/hr .BOLUS ONE Administration Discontinued Medications Generic Name Dose Route Start Last Admin Trade Name Freq PRN Reason Stop Dose Admin Al Hydroxide/Mg Hydroxide 30 ml 11/14/20 10:32 11/14/20 11:04 Gi Cocktail Oral Solution 30 Ml PO 11/14/20 10:33 30 ml ONETIME ONE Administration Famotidine 20 mg 11/14/20 11:32 Famotidine 20 Mg Tab PO 11/14/20 11:33 ONETIME ONE - Re-Assessments/Exams Free Text/Narrative Re-Assessment/Exam: 11/14/20 Hemoccult sent following melena stool in ED. Positive Hemoccult. Protonix gtt initiated. GI cocktail administered for reflux. Case discussed with [facility], currently no beds available. Case discussed with Dr. Latif, ED physician at [facility], who kindly accepted patient for transfer. Findings of examination, lab work, and discussion with Dr. Latif reviewed with patient. Patient verbalized understanding and agreement with the plan of care. Patient verbalized improvement in chest discomfort. Patient requesting additional pain medication for reflux for the EMS ride to [place]; will administer Pepcid. Departure - Departure Time of Disposition: 11:32 Disposition: DC/Tfer to [facility] 02 Condition: Fair Clinical Impression: Melena GI bleed Qualifiers: GI bleed type/associated pathology: unspecified gastrointestinal hemorrhage type Qualified Code(s): K92.2 - Gastrointestinal hemorrhage, unspecified - Discharge Information Forms: Interfacility Transfer [facility] Sepsis Event Note (ED) - Focused Exam Vital Signs: Vital Signs Temp Pulse Resp BP Pulse Ox 11/14/20 09:39 97.3 F 79 14 111/54 L 100 - My Orders Last 24 Hours: My Active Orders 11/14/20 09:30 DRUG SCREEN URINE BIORAD [URCHEM] Urgent 11/14/20 09:31 UA RFX MELANIE AND CULT IF INDIC [URIN] Stat 11/14/20 10:00 Pantoprazole [ProTONIX IV] 40 mg Sodium Chloride 0.9% [Normal Saline] 100 ml IV .CONTINUOS 11/14/20 10:14 REFLEX LACTIC ACID YES OR NO [CHEM] Routine 11/14/20 10:32 Lactated Ringers [Ringers, Lactated] 1,000 ml IV .BOLUS - Assessment/Plan Last 24 Hours: My Active Orders 11/14/20 09:30 DRUG SCREEN URINE BIORAD [URCHEM] Urgent 11/14/20 09:31 UA RFX MELANIE AND CULT IF INDIC [URIN] Stat 11/14/20 10:00 Pantoprazole [ProTONIX IV] 40 mg Sodium Chloride 0.9% [Normal Saline] 100 ml IV .CONTINUOS 11/14/20 10:14 REFLEX LACTIC ACID YES OR NO [CHEM] Routine 11/14/20 10:32 Lactated Ringers [Ringers, Lactated] 1,000 ml IV .BOLUS
[2020-11-14] MEDS ORDERED: Pantoprazole 40 MG in Sodium Chloride 0.9% 100 ML IV SCH (10:00)
[2020-11-14 10:09] LABS: ANION GAP 10.9 mEq/L (7-13); CHLORIDE,CL 105 mmol/L (98-107); SODIUM,NA 145 mmol/L (136-145)
[2020-11-14] MEDS ORDERED: GI Cocktail Oral Solution 30 ML PO ONE (10:32)
[2020-11-14] MEDS ORDERED: Lactated Ringers 1,000 ML IV ONE (10:32)
[2020-11-14] MEDS ORDERED: Famotidine 20 MG Tab PO ONE (11:32)
== END 2020-11-14 11:36 ==
LOC: DL.ED 09:20
DX: K92.1 Melena (principal); I10 Essential (primary) hypertension; E11.9 Type 2 diabetes mellitus without complications; Z88.1 Allergy status to other antibiotic agents; Z79.84 Long term (current) use of oral hypoglycemic drugs; Z79.899 Other long term (current) drug therapy; Z90.49 Acquired absence of other specified parts of digestive tract
CPT/HCPCS: 36415; 80053; 80307; 82140; 82272; 83605; 83735; 84484; 85025; 86140; 96365; 96366; 99284; 99285-25; A9270-GY; C9113; J7120

== ENCOUNTER 2021-03-04 09:00 | Emergency (ER) | payer MEDICARE, OTHER ==
--- NOTE | 2021-03-04 09:34 | EDM.PDOC ---
ED HPI GENERAL MEDICAL PROBLEM - General Chief Complaint: Gastrointestinal Problem Stated Complaint: GI BLEED Time Seen by Provider: 03/04/21 09:34 Source of Information: Reports: Patient, Old Records, RN, RN Notes Reviewed History Limitations: Reports: No Limitations - History of Present Illness INITIAL COMMENTS - FREE TEXT/NARRATIVE: Patient presents with GI bleeding since last night, 4 episodes since rising at 0630hrs today. She states stools are 'black red and filled the toilet'. She admits to nausea and lightheadedness. This has happened three times in the past, last one November 2020 necessitating transfers out. Rates pain to all quadrants of abdomen 5/10, sharp, squeezing, cramping in quality. 'Coffee grounds' in toilet this morning, 'globs'. Patient also states 3 episodes of vomiting with flecks of blood and she would also stool with the vomiting. 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 Onset: Gradual Onset Date: 03/03/21 Duration: Constant, Getting Worse Location: Reports: Abdomen Quality: Reports: Other (Cramping) Severity: Mild Improves with: Reports: None Worsens with: Reports: None Associated Symptoms: Reports: No Other Symptoms abdominal Pain Score (Numeric/FACES): 5 - Related Data Allergies Allergy/AdvReac Type Severity Reaction Status Date / Time levofloxacin [From Levaquin] Allergy Rash Verified 03/04/21 10:17 Home Meds: Home Meds Amylase/Lipase/Protease [Peggy LEWIS 24,000 Units] 1 each PO ASDIRECTED 09/23/13 [History] Cholecalciferol (Vitamin D3) [Vitamin D3] 1,000 units PO DAILY 09/23/13 [History] Cyanocobalamin (Vitamin B-12) [Cyanocobalamin Injection] 1 ml SQ .MONTHLY 09/23/13 [History] Multivitamin with Minerals [Multiple Vitamin] 1 tab PO DAILY 09/23/13 [History] Zolpidem [Ambien] 5 mg PO DAILY 09/23/13 [History] metFORMIN HCl [Metformin HCl] 500 mg PO BID 09/23/13 [History] Acetaminophen/HYDROcodone [[place] 325-5 MG] 1 tab PO ASDIRECTED PRN 03/14/19 [History] Metoprolol Succinate 50 mg PO DAILY 03/14/19 [History] Omeprazole 20 mg PO DAILY 03/14/19 [History] Past Medical History HEENT History: Reports: Cataract Cardiovascular History: Reports: Hypertension Respiratory History: Reports: None Gastrointestinal History: Reports: Cirrhosis, GI Bleed Other Gastrointestinal History: gi bleed in sept Genitourinary History: Reports: None 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 History: Reports: None Musculoskeletal History: Reports: Osteoarthritis Neurological History: Reports: None Psychiatric History: Reports: None Endocrine/Metabolic History: Reports: Diabetes, Type II Hematologic History: Reports: B12 Deficiency, Blood Transfusion(s) Immunologic History: Reports: None Oncologic (Cancer) History: Reports: None Dermatologic History: Reports: None - Infectious Disease History Infectious Disease History: Reports: Chicken Pox, Measles, Mumps - Past Surgical History Head Surgeries/Procedures: Reports: None HEENT Surgical History: Reports: Cataract Surgery GI Surgical History: Reports: Appendectomy, Cholecystectomy Other GI Surgeries/Procedures: gastric bypass Other Musculoskeletal Surgeries/Procedures:: knee cap Social & Family History - Family History Family Medical History: No Pertinent Family History - Caffeine Use Caffeine Use: Reports: Coffee - Living Situation & Occupation Living situation: Reports: , with Spouse Occupation: Retired ED ROS GENERAL - Review of Systems Review Of Systems: Comprehensive ROS is negative, except as noted in HPI. ED EXAM, GI/ABD - Physical Exam Exam: See Below Exam Limited By: No Limitations General Appearance: Alert, WD/WN, No Apparent Distress Eyes: Bilateral: Normal Appearance (No scleral icterus) Nose: Normal Inspection, Normal Mucosa, No Blood Throat/Mouth: Normal Lips, Normal Voice, No Airway Compromise, Other (Dry oral mucosa) Head: Atraumatic, Normocephalic Neck: Normal Inspection, Supple, Non-Tender, Full Range of Motion Respiratory/Chest: No Respiratory Distress, Lungs Clear, Normal Breath Sounds, No Accessory Muscle Use, Chest Non-Tender Cardiovascular: Regular Rate, Rhythm, No Edema GI/Abdominal Exam: Soft, No Distention, No Abnormal Bruit, Tender (mild generalized tenderness), Abnormal Bowel Sounds (Slightly hyperactive bowel sounds). No: Guarding, Rigid, Rebound Rectal (Female) Exam: Black Stool, Heme + Stool, Hemorrhoids Back Exam: Normal Inspection Extremities: Normal Inspection, Normal Range of Motion, Non-Tender, Normal Capillary Refill, No Pedal Edema Neurological: Alert, Oriented, CN II-XII Intact, Normal Cognition, No Motor/Sensory Deficits Psychiatric: Normal Affect, Normal Mood Skin Exam: Warm, Dry, Intact, Normal Color, No Rash. No: Ecchymosis, Jaundice, Petechiae #1 Interpretation EKG Date: 03/04/21 Time: 10:29 Rhythm: Other (SR) Rate (Beats/Min): 81 [place]: LAD-Left [place] Deviation P-Wave: Present QRS: Normal ST-T: Normal QT: Normal Comparison: NA - No Prior EKG Course - Vital Signs Last Recorded V/S: Last Vital Signs Temp 97.6 F 03/04/21 09:26 Pulse 91 03/04/21 09:26 Resp 20 03/04/21 09:26 BP 107/66 03/04/21 09:26 Pulse Ox 99 03/04/21 09:26 - Orders/Labs/Meds Orders: Active Orders 24 hr Category Date Time Status Peripheral IV Care [RC] . DIRECTED Care 03/04/21 09:37 Active Peripheral IV Care [RC] . DIRECTED Care 03/04/21 09:38 Active CULTURE URINE [RM] Stat Lab 03/04/21 11:14 Received HEMOGLOBIN/HEMATOCRIT,HH [HEME] Stat Lab 03/04/21 12:20 Received LACTIC ACID [CHEM] Routine Lab 03/04/21 12:18 Ordered Octreotide [SandoSTATIN] 100 mcg Med 03/04/21 09:45 Active Sodium Chloride 0.9% [Normal Saline] 99 ml IV Q10H Pantoprazole [ProTONIX IV] 40 mg Med 03/04/21 09:45 Active Sodium Chloride 0.9% [Normal Saline] 100 ml IV .CONTINUOS Sodium Chloride 0.9% [Saline Flush] Med 03/04/21 09:36 Active 10 ml FLUSH ASDIRECTED PRN Sodium Chloride 0.9% [Saline Flush] Med 03/04/21 09:38 Active 10 ml FLUSH ASDIRECTED PRN Peripheral IV Insertion Adult [OM.PC] Stat Oth 03/04/21 09:37 Ordered Peripheral IV Insertion Adult [OM.PC] Stat Oth 03/04/21 09:38 Ordered Medication Orders Octreotide Acetate 100 mcg/ (Sodium Chloride) 100 mls @ 50 mls/hr IV Q10H SAMIR Last Admin: 03/04/21 09:57 Dose: 50 mls/hr Documented by: NNAMDI Pantoprazole Sodium 40 mg/ (Sodium Chloride) 100 mls @ 20 mls/hr IV .CONTINUOS SAMIR Last Admin: 03/04/21 10:06 Dose: 20 mls/hr Documented by: NNAMDI Sodium Chloride (Sodium Chloride 0.9% 10 Ml Syringe) 10 ml FLUSH ASDIRECTED PRN PRN Reason: Keep Vein Open Last Admin: 03/04/21 09:57 Dose: 10 ml Documented by: NNAMDI Sodium Chloride (Sodium Chloride 0.9% 10 Ml Syringe) 10 ml FLUSH ASDIRECTED PRN PRN Reason: Keep Vein Open Last Admin: 03/04/21 11:51 Dose: 10 ml Documented by: [email or web address] Labs: Laboratory Tests 03/04/21 03/04/21 03/04/21 Range/Units 09:36 09:42 09:42 WBC 10.8 H (5.0-10.0) 10^3/uL RBC 3.40 L (4.2-5.4) 10^6/uL Hgb 10.0 L D (12.0-16.0) g/dL Hct 30.8 L (37.0-47.0) % MCV 90.6 D (80-100) fL MCH 29.4 (27.0-34.0) pg MCHC 32.5 L (33.0-35.0) g/dL Plt Count 176 (150-450) 10^3/uL Neut % (Auto) 75.8 H (42.2-75.2) % Lymph % (Auto) 17.9 L (20.5-50.1) % [place] % (Auto) 4.8 (2-8) % Eos % (Auto) 1.3 (1.0-3.0) % Baso % (Auto) 0.2 (0.0-1.0) % PT 11.9 (9.0-12.0) SEC INR 1.2 (0.9-1.2) APTT 22.4 (22.0-34.0) SEC Sodium (136-145) mmol/L Potassium (3.5-5.1) mmol/L Chloride (98-107) mmol/L Carbon Dioxide (21-32) mmol/L Anion Gap (7-13) mEq/L BUN (7-18) mg/dL Creatinine (0.55-1.02) mg/dL Est Cr Clr Drug Dosing mL/min Estimated GFR (MDRD) BUN/Creatinine Ratio (No establ ref range) Glucose (70-99) mg/dL Lactic Acid (0.4-2.0) mmol/L Calcium (8.5-10.1) mg/dL Total Bilirubin (0.2-1.0) mg/dL AST (15-37) U/L ALT (14-59) U/L Alkaline Phosphatase (46-116) U/L Ammonia (11-32) umol/L Troponin I High Sens (<=51) pg/mL Total Protein (6.4-8.2) g/dL Albumin (3.4-5.0) g/dL Globulin Albumin/Globulin Ratio Amylase (25-115) U/L Lipase (73-393) U/L Urine Color (YELLOW) Urine Appearance (CLEAR) Urine pH (5.0-9.0) Ur Specific Jackson (1.005-1.030) Urine Protein (NEGATIVE) Urine Glucose (UA) (NEGATIVE) Urine Ketones (NEGATIVE) Urine Occult Blood (NEGATIVE) Urine Nitrite (NEGATIVE) Urine Bilirubin (NEGATIVE) Urine Urobilinogen (0.2-1.0) mg/dL Ur Leukocyte Esterase (NEGATIVE) Urine RBC (0-5) /HPF Urine WBC (0-5/HPF) /HPF Ur Epithelial Cells (NOT SEEN) /HPF Urine Bacteria (0-FEW/HPF) /HPF Ethyl Alcohol (0) mg/dL Influenza Type A RNA Negative (NEGATIVE) Influenza Type B RNA Negative (NEGATIVE) SARS-CoV-2 RNA (DRU) Negative (NEGATIVE) Blood Type 03/04/21 03/04/21 03/04/21 Range/Units 09:42 09:42 09:42 WBC (5.0-10.0) 10^3/uL RBC (4.2-5.4) 10^6/uL Hgb (12.0-16.0) g/dL Hct (37.0-47.0) % MCV (80-100) fL MCH (27.0-34.0) pg MCHC (33.0-35.0) g/dL Plt Count (150-450) 10^3/uL Neut % (Auto) (42.2-75.2) % Lymph % (Auto) (20.5-50.1) % [place] % (Auto) (2-8) % Eos % (Auto) (1.0-3.0) % Baso % (Auto) (0.0-1.0) % PT (9.0-12.0) SEC INR (0.9-1.2) APTT (22.0-34.0) SEC Sodium 144 (136-145) mmol/L Potassium 4.5 (3.5-5.1) mmol/L Chloride 106 (98-107) mmol/L Carbon Dioxide 29 (21-32) mmol/L Anion Gap 13.5 H (7-13) mEq/L BUN 36 H (7-18) mg/dL Creatinine 1.05 H (0.55-1.02) mg/dL Est Cr Clr Drug Dosing 37.18 mL/min Estimated GFR (MDRD) 51 BUN/Creatinine Ratio 34.3 (No establ ref range) Glucose 179 H (70-99) mg/dL Lactic Acid 2.2 H* (0.4-2.0) mmol/L Calcium 9.5 (8.5-10.1) mg/dL Total Bilirubin 0.7 (0.2-1.0) mg/dL AST 51 H (15-37) U/L ALT 41 (14-59) U/L Alkaline Phosphatase 88 (46-116) U/L Ammonia (11-32) umol/L Troponin I High Sens 7 (<=51) pg/mL Total Protein 5.7 L (6.4-8.2) g/dL Albumin 2.7 L (3.4-5.0) g/dL Globulin 3.0 Albumin/Globulin Ratio 0.90 Amylase 23 L (25-115) U/L Lipase 12 L (73-393) U/L Urine Color (YELLOW) Urine Appearance (CLEAR) Urine pH (5.0-9.0) Ur Specific [place] (1.005-1.030) Urine Protein (NEGATIVE) Urine Glucose (UA) (NEGATIVE) Urine Ketones (NEGATIVE) Urine Occult Blood (NEGATIVE) Urine Nitrite (NEGATIVE) Urine Bilirubin (NEGATIVE) Urine Urobilinogen (0.2-1.0) mg/dL Ur Leukocyte Esterase (NEGATIVE) Urine RBC (0-5) /HPF Urine WBC (0-5/HPF) /HPF Ur Epithelial Cells (NOT SEEN) /HPF Urine Bacteria (0-FEW/HPF) /HPF Ethyl Alcohol < 3 (0) mg/dL Influenza Type A RNA (NEGATIVE) Influenza Type B RNA (NEGATIVE) SARS-CoV-2 RNA (DRU) (NEGATIVE) Blood Type O NEGATIVE 03/04/21 03/04/21 Range/Units 09:42 11:14 WBC (5.0-10.0) 10^3/uL RBC (4.2-5.4) 10^6/uL Hgb (12.0-16.0) g/dL Hct (37.0-47.0) % MCV (80-100) fL MCH (27.0-34.0) pg MCHC (33.0-35.0) g/dL Plt Count (150-450) 10^3/uL Neut % (Auto) (42.2-75.2) % Lymph % (Auto) (20.5-50.1) % [place] % (Auto) (2-8) % Eos % (Auto) (1.0-3.0) % Baso % (Auto) (0.0-1.0) % PT (9.0-12.0) SEC INR (0.9-1.2) APTT (22.0-34.0) SEC Sodium (136-145) mmol/L Potassium (3.5-5.1) mmol/L Chloride (98-107) mmol/L Carbon Dioxide (21-32) mmol/L Anion Gap (7-13) mEq/L BUN (7-18) mg/dL Creatinine (0.55-1.02) mg/dL Est Cr Clr Drug Dosing mL/min Estimated GFR (MDRD) BUN/Creatinine Ratio (No establ ref range) Glucose (70-99) mg/dL Lactic Acid (0.4-2.0) mmol/L Calcium (8.5-10.1) mg/dL Total Bilirubin (0.2-1.0) mg/dL AST (15-37) U/L ALT (14-59) U/L Alkaline Phosphatase (46-116) U/L Ammonia < 10 L (11-32) umol/L Troponin I High Sens (<=51) pg/mL Total Protein (6.4-8.2) g/dL Albumin (3.4-5.0) g/dL Globulin Albumin/Globulin Ratio Amylase (25-115) U/L Lipase (73-393) U/L Urine Color Yellow (YELLOW) Urine Appearance Slightly cloudy (CLEAR) Urine pH 6.0 (5.0-9.0) Ur Specific [place] >= 1.030 (1.005-1.030) Urine Protein Negative (NEGATIVE) Urine Glucose (UA) Negative (NEGATIVE) Urine Ketones Negative (NEGATIVE) Urine Occult Blood Large H (NEGATIVE) Urine Nitrite Negative (NEGATIVE) Urine Bilirubin Negative (NEGATIVE) Urine Urobilinogen 0.2 (0.2-1.0) mg/dL Ur Leukocyte Esterase Trace H (NEGATIVE) Urine RBC 5-10 H (0-5) /HPF Urine WBC 5-10 H (0-5/HPF) /HPF Ur Epithelial Cells Moderate H (NOT SEEN) /HPF Urine Bacteria Many H (0-FEW/HPF) /HPF Ethyl Alcohol (0) mg/dL Influenza Type A RNA (NEGATIVE) Influenza Type B RNA (NEGATIVE) SARS-CoV-2 RNA (DRU) (NEGATIVE) Blood Type Meds: Medications Generic Name Dose Route Start Last Admin Trade Name Freq PRN Reason Stop Dose Admin Octreotide Acetate 100 mcg/ 100 mls @ 50 mls/hr 03/04/21 09:45 03/04/21 09:57 Sodium Chloride IV 50 mls/hr Q10H SAMIR Administration Pantoprazole Sodium 40 mg/ 100 mls @ 20 mls/hr 03/04/21 09:45 03/04/21 10:06 Sodium Chloride IV 20 mls/hr .CONTINUOS SAMIR Administration Sodium Chloride 10 ml 03/04/21 09:36 03/04/21 09:57 Sodium Chloride 0.9% 10 Ml Syringe FLUSH 10 ml ASDIRECTED PRN Administration Keep Vein Open Sodium Chloride 10 ml 03/04/21 09:38 03/04/21 11:51 Sodium Chloride 0.9% 10 Ml Syringe FLUSH 10 ml ASDIRECTED PRN Administration Keep Vein Open Discontinued Medications Generic Name Dose Route Start Last Admin Trade Name Freq PRN Reason Stop Dose Admin Sodium Chloride 1,000 mls @ 999 mls/hr 03/04/21 09:39 03/04/21 10:05 Normal Saline IV 03/04/21 10:39 480 mls/hr .BOLUS ONE Administration Octreotide Acetate 50 mcg 03/04/21 09:39 03/04/21 09:56 Octreotide 100 Mcg/Ml Sdv IVPUSH 03/04/21 09:40 50 mcg ONETIME ONE Administration Ondansetron HCl 4 mg 03/04/21 09:39 03/04/21 10:07 Ondansetron 4 Mg/2 Ml Sdv IV 03/04/21 09:40 4 mg ONETIME ONE Administration Pantoprazole Sodium 80 mg 03/04/21 09:39 03/04/21 10:06 Pantoprazole 40 Mg Vial IVPUSH 03/04/21 09:40 80 mg .BOLUS ONE Administration - Re-Assessments/Exams Free Text/Narrative Re-Assessment/Exam: 03/04/21 Transfer delayed due to limited bed availability in the [facility]. No bed available in [facility] or [facility] or [facility]. Pt accepted to [facility] by Dr. Serrato. Departure - Departure Time of Disposition: 12:28 Disposition: DC/Tfer to Acute Hospital 02 Condition: Serious Clinical Impression: Acute GI bleeding - Discharge Information *PRESCRIPTION DRUG MONITORING PROGRAM REVIEWED*: Not Applicable *COPY OF PRESCRIPTION DRUG MONITORING REPORT IN PATIENT ERIC: Not Applicable Forms: ED Department Discharge, Interfacility Transfer [facility] Sepsis Event Note (ED) - Evaluation Sepsis Screening Result: No Definite Risk - Focused Exam Vital Signs: Vital Signs Temp Pulse Resp BP Pulse Ox 03/04/21 09:26 97.6 F 91 20 107/66 99 - My Orders Last 24 Hours: My Active Orders 03/04/21 09:36 Sodium Chloride 0.9% [Saline Flush] 10 ml FLUSH ASDIRECTED PRN 03/04/21 09:37 Peripheral IV Care [RC] . DIRECTED Peripheral IV Insertion Adult [OM.PC] Stat 03/04/21 09:38 Peripheral IV Care [RC] . DIRECTED Sodium Chloride 0.9% [Saline Flush] 10 ml FLUSH ASDIRECTED PRN Peripheral IV Insertion Adult [OM.PC] Stat 03/04/21 09:45 Octreotide [SandoSTATIN] 100 mcg Sodium Chloride 0.9% [Normal Saline] 99 ml IV Q10H Pantoprazole [ProTONIX IV] 40 mg Sodium Chloride 0.9% [Normal Saline] 100 ml IV .CONTINUOS 12/01/21 11:14 CULTURE URINE [RM] Stat 03/04/21 12:18 LACTIC ACID [CHEM] Routine 03/04/21 12:20 HEMOGLOBIN/HEMATOCRIT,HH [HEME] Stat - Assessment/Plan Last 24 Hours: My Active Orders 03/04/21 09:36 Sodium Chloride 0.9% [Saline Flush] 10 ml FLUSH ASDIRECTED PRN 03/04/21 09:37 Peripheral IV Care [RC] . DIRECTED Peripheral IV Insertion Adult [OM.PC] Stat 03/04/21 09:38 Peripheral IV Care [RC] . DIRECTED Sodium Chloride 0.9% [Saline Flush] 10 ml FLUSH ASDIRECTED PRN Peripheral IV Insertion Adult [OM.PC] Stat 03/04/21 09:45 Octreotide [SandoSTATIN] 100 mcg Sodium Chloride 0.9% [Normal Saline] 99 ml IV Q10H Pantoprazole [ProTONIX IV] 40 mg Sodium Chloride 0.9% [Normal Saline] 100 ml IV .CONTINUOS 03/04/21 11:14 CULTURE URINE [RM] Stat 03/04/21 12:18 LACTIC ACID [CHEM] Routine 03/04/21 12:20 HEMOGLOBIN/HEMATOCRIT,HH [HEME] Stat
[2021-03-04] MEDS ORDERED: Sodium Chloride 0.9% 10 ML Syringe FLUSH PRN ×2 (09:36→09:38)
[2021-03-04] MEDS ORDERED: Octreotide 100 MCG/ML SDV IVPUSH ONE (09:39)
[2021-03-04] MEDS ORDERED: Sodium Chloride 0.9% 1,000 ML IV ONE (09:39)
[2021-03-04] MEDS ORDERED: Ondansetron 4 MG/2 ML SDV IV ONE (09:39)
[2021-03-04] MEDS ORDERED: Pantoprazole 40 MG Vial IVPUSH ONE (09:39)
[2021-03-04] MEDS ORDERED: Pantoprazole 40 MG in Sodium Chloride 0.9% 100 ML IV SCH (09:45)
[2021-03-04] MEDS: Octreotide 100 MCG in Sodium Chloride 0.9% 99 ML IV SCH ×2 (09:57→12:33)
[2021-03-04 10:07] LABS: PTT,PARTIAL THROMBOPLSTIN TIME 22.4 SEC (22.0-34.0)
[2021-03-04 10:13] LABS: ANION GAP 13.5 mEq/L (7-13); CHLORIDE,CL 106 mmol/L (98-107); SODIUM,NA 144 mmol/L (136-145)
[2021-03-04 10:29] LABS: CORONAVIRUS COVID-19 NAA NEGATIVE (NEGATIVE)
[2021-03-04] MEDS ORDERED: HYDROmorphone 0.5 MG/0.5 ML Syringe IVPUSH ONE (12:48)
== END 2021-03-04 12:55 ==
LOC: DL.ED 09:00
DX: K92.2 Gastrointestinal hemorrhage, unspecified (principal); I10 Essential (primary) hypertension; E11.9 Type 2 diabetes mellitus without complications; Z88.1 Allergy status to other antibiotic agents; Z79.84 Long term (current) use of oral hypoglycemic drugs; Z79.899 Other long term (current) drug therapy; Z20.822 Contact with and (suspected) exposure to COVID-19
CPT/HCPCS: 0240U; 36415; 80053; 80307; 81001; 82140; 82150; 82272; 83605; 83690; 84484; 85014; 85018; 85025; 85610; 85730; 86900; 86901; 87086; 87088; 87186; 93005; 96365; 96366; 96368; 96375; 96376; 99285; C9113; J1170; J2354; J2405; J7030

== ENCOUNTER 2022-01-30 15:48 | Emergency (ER) | payer MEDICARE, OTHER ==
[2022-01-30 17:12] LABS: ANION GAP 12.7 mEq/L (7-13); CHLORIDE,CL 105 mmol/L (98-107); SODIUM,NA 142 mmol/L (136-145)
[2022-01-30 17:15] LABS: AMPHETAMINES,URINE NEGATIVE (NEGATIVE); BARBITURATES,URINE NEGATIVE (NEGATIVE); BENZODIAZEPINE,URINE NEGATIVE (NEGATIVE); MDMA (ECSTASY), URINE NEGATIVE (NEGATIVE); METHADONE,URINE NEGATIVE (NEGATIVE); METHAMPHETAMINES,URINE NEGATIVE (NEGATIVE); OPIATES,URINE NEGATIVE (NEGATIVE); OXYCODONE,URINE NEGATIVE (NEGATIVE); PHENCYCLIDINE,URINE NEGATIVE (NEGATIVE); TCA,URINE NEGATIVE (NEGATIVE)
[2022-01-30 17:23] LABS: ESTIMATED GFR 28 mL/min (>=60)
[2022-01-30] MEDS ORDERED: Sodium Chloride 0.9% 1,000 ML IV ONE (17:31)
[2022-01-30] MEDS ORDERED: Iopamidol 755 Mg/ML 100 ML Bottle IVPUSH ONE (17:31)
[2022-01-30 17:33] LABS: CORONAVIRUS COVID-19 NAA POSITIVE (NEGATIVE)
[2022-01-30] MEDS ORDERED: Magnesium Sulfate/Water 2 GM in Premix Bag 1 BAG IV ONE (17:33)
== END 2022-01-30 20:05 | disposition home or self-care (01) ==
LOC: DL.ED 15:48
DX: U07.1 COVID-19 (principal); E83.42 Hypomagnesemia; R79.89 Other specified abnormal findings of blood chemistry; R79.1 Abnormal coagulation profile; I10 Essential (primary) hypertension; E11.9 Type 2 diabetes mellitus without complications; Z90.49 Acquired absence of other specified parts of digestive tract; Z79.899 Other long term (current) drug therapy; Z79.84 Long term (current) use of oral hypoglycemic drugs
CPT/HCPCS: 0240U; 36415; 71045; 80053; 80305; 80307; 81001; 82140; 82150; 83605; 83690; 83735; 83880; 84484; 85025; 85379; 85610; 85730; 86140; 87086; 87088; 87186; 93005; 96365; 96366; 99285; J3475; J7030

== ENCOUNTER 2023-03-06 12:57 | Emergency (ER) | payer MEDICARE, OTHER ==
[2023-03-06] MEDS ORDERED: Sodium Chloride 0.9% 10 ML Syringe FLUSH PRN (13:37)
[2023-03-06] MEDS ORDERED: Sodium Chloride 0.9% 1,000 ML IV ONE (13:38)
[2023-03-06] MEDS ORDERED: Ondansetron 4 MG/2 ML SDV IV ONE ×2 (13:38→16:24)
[2023-03-06 14:04] LABS: BASOPHILS PERCENT AUTO 0.2 % (0.0-1.0); EOSINOPHILS PERCENT AUTO 0.2 % (1.0-3.0); HEMATOCRIT 38.3 % (37.0-47.0); HEMOGLOBIN 12.3 g/dL (12.0-16.0); LYMPHOCYTES PERCENT AUTO 6.3 % (20.5-50.1); MEAN CORPUSCULAR HEMOGLOBIN 29.8 pg (27.0-34.0); MEAN CORPUSCULAR HGB CONC 32.1 g/dL (33.0-35.0); MEAN CORPUSCULAR VOLUME 92.7 fL (80-100); MONOCYTES PERCENT AUTO 4.1 % (2-8); NEUTROPHILS PERCENT AUTO 89.2 % (42.2-75.2); PLATELET COUNT,PLT 108 10^3/uL (150-450); RED BLOOD CELL COUNT 4.13 10^6/uL (4.2-5.4); WHITE BLOOD CELL COUNT,WBC 10.4 10^3/uL (5.0-10.0)
[2023-03-06 14:24] LABS: LACTIC ACID 1.3 mmol/L (0.4-2.0)
[2023-03-06 14:33] LABS: A/G RATIO 0.9; ALBUMIN 3.5 g/dL (3.4-5.0); ANION GAP 12.1 mEq/L (7-13); BILIRUBIN TOTAL 1.2 mg/dL (0.2-1.0); BUN/CREATININE RATIO 28.5 (No establ ref range); C-REACTIVE PROTEIN 1.85 ng/dL (<=0.50); CALCIUM 8.8 mg/dL (8.5-10.1); CREATININE 1.23 mg/dL (0.55-1.02); EST CRCL DRUG DOSING (CG) 30.77 mL/min; MAGNESIUM 1.7 mg/dL (1.8-2.4); POTASSIUM,K 4.1 mmol/L (3.5-5.1); PROTEIN TOTAL,TP 7.5 g/dL (6.4-8.2)
[2023-03-06] MEDS ORDERED: Iopamidol 612 MG/ML 100 ML Bottle IVPUSH ONE (14:51)
[2023-03-06] MEDS ORDERED: Atropine/Diphenoxylate 0.025-2.5 MG Tab PO ONE (16:21)
[2023-03-06 18:10] LABS: CORONAVIRUS COVID-19 NAA NEGATIVE (NEGATIVE); INFLUENZA A NAA NEGATIVE (NEGATIVE); INFLUENZA B NAA NEGATIVE (NEGATIVE); RESPIRATORY SYNCYTIAL VIR NAA NEGATIVE (NEGATIVE)
[2023-03-06] MEDS ORDERED: Take Home: Ondansetron 4 MG Tab.DIS, 5 Tab Pack PO ONE (18:39)
[2023-03-06] MEDS ORDERED: Loperamide 2 MG Cap PO ONE (18:39)
[2023-03-06] MEDS ORDERED: Morphine 4 MG/ML Syringe IVPUSH ONE (18:52)
== END 2023-03-06 19:14 | disposition home or self-care (01) ==
LOC: DL.ED 12:57
DX: K52.9 Noninfective gastroenteritis and colitis, unspecified (principal); E86.0 Dehydration; I10 Essential (primary) hypertension; E11.9 Type 2 diabetes mellitus without complications; Z20.822 Contact with and (suspected) exposure to COVID-19; Z90.49 Acquired absence of other specified parts of digestive tract; Z88.1 Allergy status to other antibiotic agents; Z79.84 Long term (current) use of oral hypoglycemic drugs; Z79.899 Other long term (current) drug therapy
CPT/HCPCS: 0241U; 36415; 74177; 80053; 82150; 82272; 83605; 83690; 83735; 84145; 85025; 86140; 87040; 87045; 87046; 87324; 87493; 87899; 96361; 96374; 96375; 96376; 99284; 99285-25; A9270-GY; J2270; J2405; J3490; J7030; Q0162; Q9967

== ENCOUNTER 2023-03-25 14:30 | Emergency (ER) | payer MEDICARE, OTHER ==
[2023-03-25 15:02] LABS: BASOPHILS PERCENT AUTO 0.1 % (0.0-1.0); EOSINOPHILS PERCENT AUTO 1.9 % (1.0-3.0); HEMATOCRIT 31.8 % (37.0-47.0); HEMOGLOBIN 9.9 g/dL (12.0-16.0); LYMPHOCYTES PERCENT AUTO 6.6 % (20.5-50.1); MEAN CORPUSCULAR HEMOGLOBIN 29.3 pg (27.0-34.0); MEAN CORPUSCULAR HGB CONC 31.1 g/dL (33.0-35.0); MEAN CORPUSCULAR VOLUME 94.1 fL (80-100); MONOCYTES PERCENT AUTO 2.6 % (2-8); NEUTROPHILS PERCENT AUTO 88.8 % (42.2-75.2); PLATELET COUNT,PLT 141 10^3/uL (150-450); RED BLOOD CELL COUNT 3.38 10^6/uL (4.2-5.4); WHITE BLOOD CELL COUNT,WBC 10.4 10^3/uL (5.0-10.0)
[2023-03-25 15:18] LABS: PROTHROMBIN TIME 10.2 SEC (9.0-12.0)
[2023-03-25 15:20] LABS: ALBUMIN 3.1 g/dL (3.4-5.0); ANION GAP 16.9 mEq/L (7-13); BILIRUBIN TOTAL 0.9 mg/dL (0.2-1.0); BUN/CREATININE RATIO 23.7 (No establ ref range); C-REACTIVE PROTEIN 1.89 ng/dL (<=0.50); CALCIUM 8.8 mg/dL (8.5-10.1); CREATININE 1.39 mg/dL (0.55-1.02); EST CRCL DRUG DOSING (CG) 27.23 mL/min; POTASSIUM,K 3.9 mmol/L (3.5-5.1); PROTEIN TOTAL,TP 6.8 g/dL (6.4-8.2)
[2023-03-25 15:21] LABS: A/G RATIO 0.84
[2023-03-25] MEDS ORDERED: Pantoprazole 40 MG Vial IVPUSH ONE (15:44)
[2023-03-25] MEDS ORDERED: Pantoprazole 40 MG in Sodium Chloride 0.9% 100 ML IV SCH (15:45)
[2023-03-25] MEDS ORDERED: Sodium Chloride 0.9% 1,000 ML IV ONE (16:15)
== END 2023-03-25 17:01 ==
LOC: DL.ED 14:30
DX: K92.2 Gastrointestinal hemorrhage, unspecified (principal); I10 Essential (primary) hypertension; E11.9 Type 2 diabetes mellitus without complications; Z90.49 Acquired absence of other specified parts of digestive tract; Z79.82 Long term (current) use of aspirin; Z79.899 Other long term (current) drug therapy; Z88.1 Allergy status to other antibiotic agents
CPT/HCPCS: 36415; 80053; 82272; 83605; 85025; 85610; 85730; 86140; 86850; 86870; 86900; 86901; 93005; 96365; 99285; C9113; J3490; J7030

== ENCOUNTER 2023-04-26 15:51 | Emergency (ER) | payer MEDICARE, OTHER | END 2023-04-26 16:19 | disposition left against medical advice (07) | LOC: DL.ED 15:51 | DX: Z53.21 Procedure and treatment not carried out due to patient leaving prior to being seen by health care provider (principal) ==

== ENCOUNTER 2023-09-10 15:49 | Emergency (ER) | payer MEDICARE, OTHER ==
[2023-09-10 17:22] LABS: APPEARANCE,URINE SLIGHTLY CLOUDY (CLEAR); BILIRUBIN,URINE NEGATIVE (NEGATIVE); COLOR,URINE DARK YELLOW (YELLOW); GLUCOSE,URINE NEGATIVE (NEGATIVE); KETONES,URINE NEGATIVE (NEGATIVE); LEUKOCYTE ESTERASE,URINE SMALL (NEGATIVE); NITRITE,URINE POSITIVE (NEGATIVE); OCCULT BLOOD,URINE NEGATIVE (NEGATIVE); PROTEIN,URINE NEGATIVE (NEGATIVE)
[2023-09-10] MEDS: Sodium Chloride 0.9% 500 ML IV ONE (17:36)
[2023-09-10 17:38] LABS: BASOPHILS PERCENT AUTO 0.1 % (0.0-1.0); HEMATOCRIT 31.4 % (37.0-47.0); HEMOGLOBIN 10.2 g/dL (12.0-16.0); LYMPHOCYTES PERCENT AUTO 14.4 % (20.5-50.1); MEAN CORPUSCULAR HEMOGLOBIN 30.5 pg (27.0-34.0); MEAN CORPUSCULAR HGB CONC 32.5 g/dL (33.0-35.0); MONOCYTES PERCENT AUTO 7.7 % (2-8); NEUTROPHILS PERCENT AUTO 76.8 % (42.2-75.2); PLATELET COUNT,PLT 130 10^3/uL (150-450); RED BLOOD CELL COUNT 3.34 10^6/uL (4.2-5.4); WHITE BLOOD CELL COUNT,WBC 7.9 10^3/uL (5.0-10.0)
[2023-09-10 17:41] LABS: BACTERIA,URINE MANY /HPF (0-FEW/HPF); EPITHELIAL CELLS,URINE MODERATE /HPF (NOT SEEN); WBC,URINE 30-40 /HPF (0-5/HPF)
[2023-09-10 17:54] LABS: INR 1.1 (0.9-1.2); PROTHROMBIN TIME 11.4 SEC (9.0-12.0)
[2023-09-10 18:01] LABS: ALBUMIN 2.7 g/dL (3.4-5.0); ANION GAP 12.2 mEq/L (7-13); BILIRUBIN TOTAL 0.5 mg/dL (0.2-1.0); BUN/CREATININE RATIO 22.4 (No establ ref range); CALCIUM 8.8 mg/dL (8.5-10.1); CREATININE 1.25 mg/dL (0.55-1.02); EST CRCL DRUG DOSING (CG) 30.28 mL/min; MAGNESIUM 1.7 mg/dL (1.8-2.4); POTASSIUM,K 4.2 mmol/L (3.5-5.1); PROTEIN TOTAL,TP 6.7 g/dL (6.4-8.2)
[2023-09-10 18:04] LABS: A/G RATIO 0.68
[2023-09-10] MEDS: cefTRIAXone 1 GM Vial IVPUSH ONE (18:34)
[2023-09-10] MEDS: Take Home: Cephalexin 500 MG Cap, 6 Cap Pack PO ONE (18:49)
== END 2023-09-10 19:00 | disposition home or self-care (01) ==
LOC: DL.ED 15:49
DX: N39.0 Urinary tract infection, site not specified (principal); I10 Essential (primary) hypertension; E78.00 Pure hypercholesterolemia, unspecified; I25.10 Atherosclerotic heart disease of native coronary artery without angina pectoris; E11.9 Type 2 diabetes mellitus without complications; Z95.5 Presence of coronary angioplasty implant and graft; Z90.49 Acquired absence of other specified parts of digestive tract; Z86.16 Personal history of COVID-19; Z79.82 Long term (current) use of aspirin; Z79.899 Other long term (current) drug therapy; Z88.1 Allergy status to other antibiotic agents
CPT/HCPCS: 36415; 71045; 80053; 81001; 83605; 83690; 83735; 84484; 85025; 85610; 87086; 87088; 87186; 96361; 96374; 99285; A9270; J0696; J7030; 82140

== ENCOUNTER 2023-09-12 09:55 | Emergency (ER) | payer MEDICARE, OTHER ==
[2023-09-12] MEDS: Pantoprazole 40 MG in Sodium Chloride 0.9% 100 ML IV SCH (10:46)
[2023-09-12] MEDS: Sodium Chloride 0.9% 1,000 ML IV ONE (10:46)
[2023-09-12] MEDS: Ondansetron 4 MG/2 ML SDV IV ONE (10:46)
[2023-09-12 10:54] LABS: BASOPHILS PERCENT AUTO 0.2 % (0.0-1.0); EOSINOPHILS PERCENT AUTO 1.5 % (1.0-3.0); HEMATOCRIT 35.7 % (37.0-47.0); HEMOGLOBIN 11.3 g/dL (12.0-16.0); LYMPHOCYTES PERCENT AUTO 13.2 % (20.5-50.1); MEAN CORPUSCULAR HEMOGLOBIN 30.1 pg (27.0-34.0); MEAN CORPUSCULAR HGB CONC 31.7 g/dL (33.0-35.0); MEAN CORPUSCULAR VOLUME 94.9 fL (80-100); MONOCYTES PERCENT AUTO 5.6 % (2-8); NEUTROPHILS PERCENT AUTO 79.5 % (42.2-75.2); PLATELET COUNT,PLT 207 10^3/uL (150-450); RED BLOOD CELL COUNT 3.76 10^6/uL (4.2-5.4); WHITE BLOOD CELL COUNT,WBC 9.8 10^3/uL (5.0-10.0)
[2023-09-12] MEDS: Sodium Chloride 0.9% 10 ML Syringe FLUSH PRN (11:00)
[2023-09-12 11:01] LABS: PROTHROMBIN TIME 10.8 SEC (9.0-12.0); PTT,PARTIAL THROMBOPLSTIN TIME 27.5 SEC (22.0-34.0)
[2023-09-12 11:02] LABS: ANION GAP 13.4 mEq/L (7-13); BILIRUBIN TOTAL 0.5 mg/dL (0.2-1.0); BUN/CREATININE RATIO 19.4 (No establ ref range); CALCIUM 9.3 mg/dL (8.5-10.1); CREATININE 1.08 mg/dL (0.55-1.02); EST CRCL DRUG DOSING (CG) 35.05 mL/min; POTASSIUM,K 4.4 mmol/L (3.5-5.1); PROTEIN TOTAL,TP 7.4 g/dL (6.4-8.2)
[2023-09-12 11:05] LABS: LACTIC ACID 1.8 mmol/L (0.4-2.0)
[2023-09-12 11:07] LABS: A/G RATIO 0.68
== END 2023-09-12 12:44 | disposition home or self-care (01) ==
LOC: DL.ED 09:55
DX: K56.41 Fecal impaction (principal); I10 Essential (primary) hypertension; E78.00 Pure hypercholesterolemia, unspecified; I25.10 Atherosclerotic heart disease of native coronary artery without angina pectoris; K21.9 Gastro-esophageal reflux disease without esophagitis; E11.9 Type 2 diabetes mellitus without complications; R10.84 Generalized abdominal pain; Z88.1 Allergy status to other antibiotic agents; Z79.82 Long term (current) use of aspirin; Z79.899 Other long term (current) drug therapy; Z86.16 Personal history of COVID-19
CPT/HCPCS: 36415; 80053; 83605; 83690; 85025; 85610; 85730; 96365; 96366; 96375; 99284; C9113; J2405; J3490; J7030

== ENCOUNTER 2024-03-27 17:14 | Emergency (ER) | payer MEDICARE, OTHER ==
[2024-03-27 18:17] LABS: BASOPHILS PERCENT AUTO 0.3 % (0.0-1.0); EOSINOPHILS PERCENT AUTO 2.1 % (1.0-3.0); HEMATOCRIT 25.5 % (37.0-47.0); HEMOGLOBIN 7.7 g/dL (12.0-16.0); LYMPHOCYTES PERCENT AUTO 20.7 % (20.5-50.1); MEAN CORPUSCULAR HEMOGLOBIN 27.9 pg (27.0-34.0); MEAN CORPUSCULAR HGB CONC 30.2 g/dL (33.0-35.0); MEAN CORPUSCULAR VOLUME 92.4 fL (80-100); MONOCYTES PERCENT AUTO 8.9 % (2-8); PLATELET COUNT,PLT 365 10^3/uL (150-450); RED BLOOD CELL COUNT 2.76 10^6/uL (4.2-5.4); WHITE BLOOD CELL COUNT,WBC 7.5 10^3/uL (5.0-10.0)
[2024-03-27 18:36] LABS: INR 1.2 (0.9-1.2); PROTHROMBIN TIME 12.3 SEC (9.0-12.0); PTT,PARTIAL THROMBOPLSTIN TIME 27.2 SEC (22.0-34.0)
[2024-03-27 18:40] LABS: ALBUMIN 1.7 g/dL (3.4-5.0); BILIRUBIN TOTAL 0.5 mg/dL (0.2-1.0); BUN/CREATININE RATIO 17.2 (No establ ref range); CREATININE 1.16 mg/dL (0.55-1.02); EST CRCL DRUG DOSING (CG) 30.65 mL/min; MAGNESIUM 1.8 mg/dL (1.8-2.4); PROTEIN TOTAL,TP 5.9 g/dL (6.4-8.2)
[2024-03-27 18:41] LABS: A/G RATIO 0.4
[2024-03-27 18:42] LABS: LACTIC ACID 2.9 mmol/L (0.4-2.0)
[2024-03-27] MEDS: Pantoprazole 40 MG Vial IVPUSH ONE (19:24)
[2024-03-27] MEDS: cefTRIAXone 1 GM Vial IVPUSH ONE (20:31)
== END 2024-03-27 21:30 ==
LOC: DL.ED 17:14
DX: K92.2 Gastrointestinal hemorrhage, unspecified (principal); D64.9 Anemia, unspecified; I25.10 Atherosclerotic heart disease of native coronary artery without angina pectoris; I10 Essential (primary) hypertension; E78.00 Pure hypercholesterolemia, unspecified; J44.9 Chronic obstructive pulmonary disease, unspecified; K21.9 Gastro-esophageal reflux disease without esophagitis; E11.9 Type 2 diabetes mellitus without complications; Z86.16 Personal history of COVID-19; Z90.49 Acquired absence of other specified parts of digestive tract; Z98.84 Bariatric surgery status; Z88.1 Allergy status to other antibiotic agents; Z88.8 Allergy status to other drugs, medicaments and biological substances; Z79.01 Long term (current) use of anticoagulants; Z79.84 Long term (current) use of oral hypoglycemic drugs; Z79.899 Other long term (current) drug therapy
CPT/HCPCS: 36415; 74176; 80053; 82272; 83605; 83735; 83880; 84484; 85025; 85610; 85730; 86850; 86870; 86900; 86901; 96374; 96375; 99285; J0696; J2470

== ENCOUNTER 2024-06-11 09:30 | Emergency (ER) | payer MEDICARE, OTHER ==
[2024-06-11 10:05] LABS: O2 DELIVERY DEVICE ROOM AIR
[2024-06-11 10:06] LABS: BASOPHILS PERCENT AUTO 0.3 % (0.0-1.0); EOSINOPHILS PERCENT AUTO 4.1 % (1.0-3.0); HEMATOCRIT 37.4 % (37.0-47.0); HEMOGLOBIN 12.1 g/dL (12.0-16.0); LYMPHOCYTES PERCENT AUTO 19.9 % (20.5-50.1); MEAN CORPUSCULAR HGB CONC 32.4 g/dL (33.0-35.0); MEAN CORPUSCULAR VOLUME 89.7 fL (80-100); MONOCYTES PERCENT AUTO 7.4 % (2-8); NEUTROPHILS PERCENT AUTO 68.3 % (42.2-75.2); PLATELET COUNT,PLT 209 10^3/uL (150-450); RED BLOOD CELL COUNT 4.17 10^6/uL (4.2-5.4)
[2024-06-11] MEDS: Lactated Ringers 500 ML IV ONE (10:13)
[2024-06-11 10:35] LABS: ALBUMIN 2.4 g/dL (3.4-5.0); ANION GAP 10.5 mEq/L (7-13); BILIRUBIN TOTAL 0.6 mg/dL (0.2-1.0); BUN/CREATININE RATIO 21.1 (No establ ref range); CALCIUM 9.9 mg/dL (8.5-10.1); CREATININE 1.28 mg/dL (0.55-1.02); EST CRCL DRUG DOSING (CG) 29.11 mL/min; MAGNESIUM 1.8 mg/dL (1.8-2.4); POTASSIUM,K 4.5 mmol/L (3.5-5.1); PROTEIN TOTAL,TP 6.8 g/dL (6.4-8.2)
[2024-06-11 10:36] LABS: LACTIC ACID 1.3 mmol/L (0.4-2.0)
[2024-06-11 10:37] LABS: A/G RATIO 0.55; PROTHROMBIN TIME 10.5 SEC (9.0-12.0)
[2024-06-11 11:43] LABS: BASE EXCESS VENOUS 0.5 mmol/l ((-2)-(+3)); BICARBONATE,VENOUS 27 mmol/l (19-25); O2 SATURATION VENOUS 64.4 % (60-80); PCO2 VENOUS 55 mmHg (41-51); PH,VENOUS 7.31 (7.31-7.41); PO2 VENOUS 43 mmHg (35-42)
[2024-06-11] MEDS: Iopamidol 612 MG/ML 100 ML Bottle IVPUSH ONE (12:23)
[2024-06-11] MEDS: Sodium Chloride 0.9% 1,000 ML IV ONE (15:13)
[2024-06-11] MEDS: Famotidine 20 MG Tab PO ONE (15:13)
[2024-06-11] MEDS: Dexamethasone 4 MG/ML SDV IVPUSH ONE (15:13)
[2024-06-11] MEDS: Cefdinir 250 MG/5 ML Susp 100 ML Bottle PO SCH (15:48)
[2024-06-11 18:19] LABS: ANION GAP 12.7 mEq/L (7-13); CALCIUM 8.8 mg/dL (8.5-10.1); CREATININE 1.33 mg/dL (0.55-1.02); EST CRCL DRUG DOSING (CG) 28.02 mL/min; POTASSIUM,K 4.7 mmol/L (3.5-5.1)
[2024-06-11] MEDS: Loperamide 2 MG Cap PO ONE (21:45)
== END 2024-06-11 23:45 | disposition left against medical advice (07) ==
LOC: DL.ED 09:30
DX: J44.0 Chronic obstructive pulmonary disease with (acute) lower respiratory infection (principal); J18.9 Pneumonia, unspecified organism; N17.9 Acute kidney failure, unspecified; I10 Essential (primary) hypertension; E78.00 Pure hypercholesterolemia, unspecified; I25.10 Atherosclerotic heart disease of native coronary artery without angina pectoris; E11.9 Type 2 diabetes mellitus without complications; Z86.16 Personal history of COVID-19; Z95.5 Presence of coronary angioplasty implant and graft; Z88.8 Allergy status to other drugs, medicaments and biological substances; Z79.82 Long term (current) use of aspirin
CPT/HCPCS: 36415; 71045; 74177; 80048; 80053; 82803; 83605; 83735; 84484; 85025; 85610; 85730; 87040; 87428; 93010; 96361; 96374; 99284; 99285; A9270; J1100; J7030; J7120; Q9967

== ENCOUNTER 2024-06-18 09:54 | Observation (INO) | payer MEDICARE, OTHER ==
[2024-06-18 10:37] LABS: HEMATOCRIT 35.4 % (37.0-47.0); HEMOGLOBIN 11.4 g/dL (12.0-16.0); MEAN CORPUSCULAR HEMOGLOBIN 29.4 pg (27.0-34.0); MEAN CORPUSCULAR HGB CONC 32.2 g/dL (33.0-35.0); MEAN CORPUSCULAR VOLUME 91.2 fL (80-100); PLATELET COUNT,PLT 114 10^3/uL (150-450); RED BLOOD CELL COUNT 3.88 10^6/uL (4.2-5.4); WHITE BLOOD CELL COUNT,WBC 8.2 10^3/uL (5.0-10.0)
[2024-06-18 10:40] LABS: BASOPHILS PERCENT AUTO 0.1 % (0.0-1.0); EOSINOPHILS PERCENT AUTO 3.3 % (1.0-3.0); LYMPHOCYTES PERCENT AUTO 12.2 % (20.5-50.1); MONOCYTES PERCENT AUTO 6.8 % (2-8); NEUTROPHILS PERCENT AUTO 77.6 % (42.2-75.2)
[2024-06-18 10:52] LABS: PROTHROMBIN TIME 10.2 SEC (9.0-12.0)
[2024-06-18 10:59] LABS: ALBUMIN 2.5 g/dL (3.4-5.0); ANION GAP 8.7 mEq/L (7-13); BILIRUBIN TOTAL 0.4 mg/dL (0.2-1.0); BUN/CREATININE RATIO 16.2 (No establ ref range); CALCIUM 8.5 mg/dL (8.5-10.1); CREATININE 0.99 mg/dL (0.55-1.02); EST CRCL DRUG DOSING (CG) 35.91 mL/min; POTASSIUM,K 3.7 mmol/L (3.5-5.1); PROTEIN TOTAL,TP 6.7 g/dL (6.4-8.2)
[2024-06-18] MEDS: Ondansetron 4 MG/2 ML SDV IVPUSH ONE (11:01)
[2024-06-18 11:02] LABS: A/G RATIO 0.6; EOSINOPHILS PERCENT MAN 2 % (1-3); LYMPHOCYTES PERCENT MAN 11 % (20-50); MONOCYTES PERCENT MAN 6 % (2-8); SEG NEUTROPHILS PERCENT MAN 81 % (42-75)
[2024-06-18] MEDS: Sodium Chloride 0.9% 500 ML IV ONE (11:12)
[2024-06-18] MEDS: Albuterol/Ipratropium 3.0-0.5 MG/3 ML Neb Soln NEB ONE (11:16)
[2024-06-18] MEDS: cefTRIAXone 1 GM Vial IVPUSH ONE (13:03)
[2024-06-18] MEDS ORDERED: Acetaminophen 325 MG Tab PO PRN (15:04)
[2024-06-18] MEDS ORDERED: Sodium Chloride 0.9% 10 ML Syringe FLUSH PRN (15:04)
[2024-06-18] MEDS ORDERED: Ondansetron 4 MG/2 ML SDV IVPUSH PRN (15:04)
[2024-06-18] MEDS ORDERED: Amylase/Lipase/Protease 12,000 Unit Cap.CR PO PRN (15:15)
[2024-06-18] MEDS ORDERED: Albuterol/Ipratropium 3.0-0.5 MG/3 ML Neb Soln NEB PRN (15:17)
[2024-06-18] MEDS: Pantoprazole 40 MG Vial IVPUSH SCH (16:33)
[2024-06-18] MEDS: cefTRIAXone 1 GM Vial IVPUSH SCH (16:33)
[2024-06-18] MEDS: Azithromycin 500 MG in Sodium Chloride 0.9% 250 ML IV SCH (16:34)
[2024-06-18] MEDS: guaiFENesin 600 MG Tab.ER PO SCH (16:34)
[2024-06-18] MEDS ORDERED: PANCRELIPASE PO PRN (17:05)
[2024-06-18] MEDS: Amylase/Lipase/Protease 12,000 Unit Cap.CR PO SCH (17:24)
[2024-06-18] MEDS: CREON 36000 UNIT PO SCH (17:29)
[2024-06-18] MEDS: Misoprostol 100 MCG Tab PO SCH (17:39)
[2024-06-18] MEDS: Sodium Chloride 0.9% 1,000 ML IV SCH (17:44)
[2024-06-18] MEDS: MISOPROSTOL 50 MCG PO SCH (17:44)
[2024-06-18] MEDS: Acetaminophen/HYDROcodone 325-5 MG Tab PO PRN (19:34)
[2024-06-18] MEDS: atorvaSTATin 20 MG Tab PO SCH (20:57)
[2024-06-18] MEDS: Atenolol 50 MG Tab PO SCH (20:57)
[2024-06-18] MEDS: Melatonin 3 MG Tab PO PRN (20:57)
[2024-06-19] MEDS: Sodium Chloride 0.9% 10 ML Syringe FLUSH SCH (00:13)
[2024-06-19 03:56] LABS: HEMATOCRIT 30.8 % (37.0-47.0); HEMOGLOBIN 9.8 g/dL (12.0-16.0)
[2024-06-19] MEDS ORDERED: Clopidogrel 75 MG Tab PO SCH (09:00)
== END 2024-06-19 06:52 ==
LOC: DL.ED 09:54 → DL.MS 13:27
PROVIDERS: ADMIT Internal Medicine; ATTEND Internal Medicine
DX: J18.0 Bronchopneumonia, unspecified organism (principal); K74.60 Unspecified cirrhosis of liver; K86.89 Other specified diseases of pancreas; R11.2 Nausea with vomiting, unspecified; R19.7 Diarrhea, unspecified; I25.10 Atherosclerotic heart disease of native coronary artery without angina pectoris; E11.22 Type 2 diabetes mellitus with diabetic chronic kidney disease; I12.9 Hypertensive chronic kidney disease with stage 1 through stage 4 chronic kidney disease, or unspecified chronic kidney disease; N18.9 Chronic kidney disease, unspecified; Z95.5 Presence of coronary angioplasty implant and graft; Z88.8 Allergy status to other drugs, medicaments and biological substances; Z79.84 Long term (current) use of oral hypoglycemic drugs; Z79.899 Other long term (current) drug therapy; Z87.891 Personal history of nicotine dependence
CPT/HCPCS: 36415; 71250; 80053; 84484; 85014; 85018; 85025; 85610; 86850; 86870; 86900; 86901; 87493; 93005; 93010; 94010; 94640; 99222; 99238; 99284; A9270-GY; J0456; J0696; J2405; J2470; J7030; J7040; J7050

== ENCOUNTER 2024-06-27 16:56 | Emergency (ER) | payer MEDICARE, OTHER ==
[2024-06-27] MEDS ORDERED: Sodium Chloride 0.9% 10 ML Syringe FLUSH PRN (17:14)
[2024-06-27 17:47] LABS: BASOPHILS PERCENT AUTO 0.2 % (0.0-1.0); EOSINOPHILS PERCENT AUTO 3.9 % (1.0-3.0); HEMATOCRIT 34.1 % (37.0-47.0); HEMOGLOBIN 10.9 g/dL (12.0-16.0); LYMPHOCYTES PERCENT AUTO 21.1 % (20.5-50.1); MEAN CORPUSCULAR HEMOGLOBIN 29.7 pg (27.0-34.0); MEAN CORPUSCULAR VOLUME 92.9 fL (80-100); MONOCYTES PERCENT AUTO 10.8 % (2-8); PLATELET COUNT,PLT 141 10^3/uL (150-450); RED BLOOD CELL COUNT 3.67 10^6/uL (4.2-5.4); WHITE BLOOD CELL COUNT,WBC 5.8 10^3/uL (5.0-10.0)
[2024-06-27 18:08] LABS: INR 1.1 (0.9-1.2); PROTHROMBIN TIME 11.4 SEC (9.0-12.0); PTT,PARTIAL THROMBOPLSTIN TIME 22.5 SEC (22.0-34.0)
[2024-06-27 18:11] LABS: ALBUMIN 2.1 g/dL (3.4-5.0); ANION GAP 10.9 mEq/L (7-13); BILIRUBIN TOTAL 0.5 mg/dL (0.2-1.0); BUN/CREATININE RATIO 12.3 (No establ ref range); CALCIUM 8.9 mg/dL (8.5-10.1); CREATININE 1.46 mg/dL (0.55-1.02); EST CRCL DRUG DOSING (CG) 25.52 mL/min; MAGNESIUM 1.5 mg/dL (1.8-2.4); POTASSIUM,K 3.9 mmol/L (3.5-5.1)
[2024-06-27 18:12] LABS: A/G RATIO 0.54
[2024-06-27] MEDS ORDERED: NS + KCl 20mEq/L 500 ML IV SCH (18:30)
[2024-06-27] MEDS: Albumin Human 25 GM in Premix Bag 1 BAG IV ONE (18:34)
[2024-06-27] MEDS: Sodium Chloride 0.9% 500 ML IV SCH ×2 (18:49→20:22)
== END 2024-06-27 21:50 | disposition home or self-care (01) ==
LOC: DL.ED 16:56
DX: I95.9 Hypotension, unspecified (principal); E86.1 Hypovolemia; I10 Essential (primary) hypertension; I25.10 Atherosclerotic heart disease of native coronary artery without angina pectoris; E11.9 Type 2 diabetes mellitus without complications; E78.00 Pure hypercholesterolemia, unspecified; J44.9 Chronic obstructive pulmonary disease, unspecified; K21.9 Gastro-esophageal reflux disease without esophagitis; Z88.8 Allergy status to other drugs, medicaments and biological substances; Z79.899 Other long term (current) drug therapy; Z79.84 Long term (current) use of oral hypoglycemic drugs; Z86.16 Personal history of COVID-19
CPT/HCPCS: 36415; 71045; 80053; 83690; 83735; 83880; 85025; 85610; 85730; 93005; 96361; 96365; 99284; 99285; J7040; P9047

== ENCOUNTER 2024-07-16 06:18 | Emergency (ER) | payer MEDICARE, OTHER ==
[2024-07-16] MEDS ORDERED: Sodium Chloride 0.9% 500 ML IV SCH (06:45)
[2024-07-16] MEDS: Sodium Chloride 0.9% 500 ML IV ONE (06:51)
[2024-07-16 07:34] LABS: BASOPHILS PERCENT AUTO 0.2 % (0.0-1.0); EOSINOPHILS PERCENT AUTO 0.2 % (1.0-3.0); HEMATOCRIT 25.4 % (37.0-47.0); HEMOGLOBIN 8.3 g/dL (12.0-16.0); LYMPHOCYTES PERCENT AUTO 10.1 % (20.5-50.1); MEAN CORPUSCULAR HEMOGLOBIN 30.7 pg (27.0-34.0); MEAN CORPUSCULAR HGB CONC 32.7 g/dL (33.0-35.0); MEAN CORPUSCULAR VOLUME 94.1 fL (80-100); NEUTROPHILS PERCENT AUTO 78.5 % (42.2-75.2); PLATELET COUNT,PLT 81 10^3/uL (150-450); WHITE BLOOD CELL COUNT,WBC 5.8 10^3/uL (5.0-10.0)
[2024-07-16] MEDS: Cefepime 2 GM Vial IVPUSH ONE (07:34)
[2024-07-16 07:50] LABS: APPEARANCE,URINE CLEAR (CLEAR); COLOR,URINE YELLOW (YELLOW); PH,URINE 5.5 (5.0-9.0); PROTEIN,URINE NEGATIVE (NEGATIVE)
[2024-07-16 07:51] LABS: BILIRUBIN,URINE NEGATIVE (NEGATIVE); GLUCOSE,URINE NEGATIVE (NEGATIVE); KETONES,URINE NEGATIVE (NEGATIVE); LEUKOCYTE ESTERASE,URINE NEGATIVE (NEGATIVE); NITRITE,URINE NEGATIVE (NEGATIVE); OCCULT BLOOD,URINE NEGATIVE (NEGATIVE); UROBILINOGEN,URINE 0.2 mg/dL (0.2-1.0)
[2024-07-16 08:02] LABS: ALBUMIN 1.8 g/dL (3.4-5.0); ANION GAP 16.6 mEq/L (7-13); BILIRUBIN DIRECT 0.4 mg/dL (0.0-0.2); BILIRUBIN INDIRECT 0.3; BILIRUBIN TOTAL 0.7 mg/dL (0.2-1.0); CALCIUM 7.6 mg/dL (8.5-10.1); CREATININE 1.09 mg/dL (0.55-1.02); EST CRCL DRUG DOSING (CG) 35.75 mL/min; POTASSIUM,K 3.6 mmol/L (3.5-5.1); PROTEIN TOTAL,TP 4.6 g/dL (6.4-8.2)
[2024-07-16] MEDS ORDERED: Piperacillin/Tazobactam 3.375 GM in Sodium Chloride 0.9% 100 ML IV ONE (08:03)
[2024-07-16 08:04] LABS: A/G RATIO 0.64
[2024-07-16 08:05] LABS: LACTIC ACID 1.9 mmol/L (0.4-2.0)
[2024-07-16] MEDS: Piperacillin/Tazobactam 4.5 GM in Sodium Chloride 0.9% 100 ML IV ONE (08:11)
[2024-07-16] MEDS: Norepinephrine Bit/D5W Premix 250 ML IV SCH (09:05)
[2024-07-16] MEDS: Norepinephrine Bit/D5W Premix 250 ML ONE (09:06)
[2024-07-16 09:09] LABS: ALBUMIN 1.8 g/dL (3.4-5.0); ANION GAP 15.7 mEq/L (7-13); BILIRUBIN TOTAL 0.7 mg/dL (0.2-1.0); BUN/CREATININE RATIO 24.1 (No establ ref range); CALCIUM 7.5 mg/dL (8.5-10.1); CREATININE 1.08 mg/dL (0.55-1.02); EST CRCL DRUG DOSING (CG) 36.09 mL/min; POTASSIUM,K 3.7 mmol/L (3.5-5.1); PROTEIN TOTAL,TP 4.7 g/dL (6.4-8.2)
[2024-07-16 09:16] LABS: A/G RATIO 0.62
== END 2024-07-16 11:32 ==
LOC: DL.ED 06:18
DX: A41.9 Sepsis, unspecified organism (principal); I95.9 Hypotension, unspecified; J69.0 Pneumonitis due to inhalation of food and vomit; D64.9 Anemia, unspecified; I25.10 Atherosclerotic heart disease of native coronary artery without angina pectoris; E78.00 Pure hypercholesterolemia, unspecified; I10 Essential (primary) hypertension; J44.9 Chronic obstructive pulmonary disease, unspecified; E11.9 Type 2 diabetes mellitus without complications; Z86.16 Personal history of COVID-19; Z95.5 Presence of coronary angioplasty implant and graft; Z88.1 Allergy status to other antibiotic agents; Z88.8 Allergy status to other drugs, medicaments and biological substances; Z79.02 Long term (current) use of antithrombotics/antiplatelets; Z79.899 Other long term (current) drug therapy; Z79.84 Long term (current) use of oral hypoglycemic drugs
CPT/HCPCS: 36415; 36556; 51702; 70450; 71045; 80048; 80053; 80076; 81003; 82140; 82272; 83605; 84484; 85025; 86850; 86870; 86900; 86901; 87040; 87428-QW; 93005; 93010; 96361; 96365; 96366; 96367; 96375; 99285-25; 99291; C1751; J0692; J2543; J7030

== ENCOUNTER 2024-08-23 23:08 | Emergency (ER) | payer MEDICARE, OTHER ==
[2024-08-23] MEDS: Iopamidol 755 Mg/ML 100 ML Bottle IVPUSH ONE (23:31)
[2024-08-23 23:43] LABS: BASOPHILS PERCENT AUTO 0.4 % (0.0-1.0); EOSINOPHILS PERCENT AUTO 5.9 % (1.0-3.0); HEMATOCRIT 31.8 % (37.0-47.0); HEMOGLOBIN 10.7 g/dL (12.0-16.0); LYMPHOCYTES PERCENT AUTO 22.2 % (20.5-50.1); MEAN CORPUSCULAR HEMOGLOBIN 32.6 pg (27.0-34.0); MEAN CORPUSCULAR HGB CONC 33.6 g/dL (33.0-35.0); MONOCYTES PERCENT AUTO 6.9 % (2-8); NEUTROPHILS PERCENT AUTO 64.6 % (42.2-75.2); PLATELET COUNT,PLT 145 10^3/uL (150-450); RED BLOOD CELL COUNT 3.28 10^6/uL (4.2-5.4); WHITE BLOOD CELL COUNT,WBC 5.6 10^3/uL (5.0-10.0)
[2024-08-24] MEDS: Sodium Chloride 0.9% 1,000 ML IV SCH (00:25)
[2024-08-24 00:33] LABS: ALANINE AMINOTRANSFERASE,ALT 30 U/L (14-59); ALBUMIN 2.8 g/dL (3.4-5.0); ALKALINE PHOSPHATASE 190 U/L (46-116); ANION GAP 13.4 mEq/L (7-13); ASPARTATE AMNIOTRANSFERASE,AST 25 U/L (15-37); BILIRUBIN TOTAL 0.6 mg/dL (0.2-1.0); BLOOD UREA NITROGEN,BUN 46 mg/dL (7-18); BUN/CREATININE RATIO 22.2 (No establ ref range); CALCIUM 9.6 mg/dL (8.5-10.1); CARBON DIOXIDE,CO2 24 mmol/L (21-32); CHLORIDE,CL 104 mmol/L (98-107); CREATININE 2.07 mg/dL (0.55-1.02); ESTIMATED GFR 24 mL/min (>=60); GLUCOSE RANDOM 163 mg/dL (70-99); POTASSIUM,K 4.4 mmol/L (3.5-5.1); PROTEIN TOTAL,TP 6.3 g/dL (6.4-8.2); SODIUM,NA 137 mmol/L (136-145)
[2024-08-24 00:47] LABS: LACTIC ACID 2.2 mmol/L (0.4-2.0)
== END 2024-08-24 00:56 ==
LOC: DL.ED 23:08
DX: I63.9 Cerebral infarction, unspecified (principal); G81.91 Hemiplegia, unspecified affecting right dominant side; I10 Essential (primary) hypertension; I25.10 Atherosclerotic heart disease of native coronary artery without angina pectoris; E11.9 Type 2 diabetes mellitus without complications; K21.9 Gastro-esophageal reflux disease without esophagitis; E78.00 Pure hypercholesterolemia, unspecified; Z88.8 Allergy status to other drugs, medicaments and biological substances; Z79.899 Other long term (current) drug therapy; Z86.16 Personal history of COVID-19
CPT/HCPCS: 36415; 70450; 70496; 70498; 80053; 82947; 83605; 85025; 93005; 93010; 96360; 99285; J7030; Q9967